=== PATIENT | female | born 1940 | race Caucasian/White ===

== ENCOUNTER → 2016-06-09 | Outpatient (CLI) | payer OTHER ==
--- NOTE | 2016-06-09 15:59 | MAMMOGRAPHY REPORT ---
BILATERAL DIGITAL SCREENING MAMMOGRAM WITH CAD: 06/09/2016 CLINICAL HISTORY: Routine screening. Patient has no complaints. TECHNIQUE: Bilateral CC and MLO views were obtained. Current study was also evaluated with a Comput er Aided Detection (CAD) system. COMPARISON: Comparison is made to exams dated: 06/06/2015 mammogram, 06/05/2014 mammogram, 06/02/2013 mammogram, 05/31/2012 mammogram, 05/28/2011 mammogram, and 05/27/2010 mammogram - [facility] enter. BREAST COMPOSITION: There are scattered areas of fibroglandular density in both breasts. FINDINGS: There are scattered stable benign coarse calcifications in the breasts. No suspicious mas s, architectural distortion or cluster of suspicious microcalcifications is seen. IMPRESSION: ACR BI-RADS CATEGORY 1: NEGATIVE There is no mammographic evidence of malignancy. A 1 year screening mammogram is recommended. The p atient will receive written notification of the results. Approximately 10% of breast cancers are not detected with mammography. A negative mammographic repor t should not delay biopsy if a clinically suggestive mass is present. Lyn Dickens M.D. ay/:06/09/2016 14:40:10 Triple Air Valve Tester: Tiarra FORD(Stefany)(Kwan), [facility] letter sent: Normal 1/2 BI-RADS Code: ACR BI-RADS Category 1: Negative
== END | disposition home or self-care (01) ==
LOC: C.MAMM 11:33
PROVIDERS: ATTEND Obstetrics & Gynecology
DX: Z12.31 Encounter for screening mammogram for malignant neoplasm of breast (principal)

== ENCOUNTER → 2016-08-27 | Outpatient (CLI) | payer OTHER ==
[2016-08-27 12:04] LABS: BASO % 0.3 %; BASO ABS # 0.02 K/uL (0-0.2); COMPLETE YES; EOS % 4.4 %; HEMATOCRIT 41.7 % (37-47); IG% 0.1 %; LYMPH % 22.8 %; LYMPH ABS # 1.82 K/uL (1.2-3.4); MEAN CELL VOLUME 96.1 fL (80-100); MEAN CORPUSCULAR HEMOGLOBIN 31.6 pg (25-34); MEAN CORPUSCULAR HGB CONC 32.9 g/dl (32-36); MEAN PLATELET VOLUME 10.6 fL (7.4-10.4); MONO % 7.6 %; NEUT % 64.8 %; PLATELET COUNT 257 K/uL (130-400); RED BLOOD COUNT 4.34 M/uL (4.2-5.4)
[2016-08-27 12:32] LABS: CHOLESTEROL/HDL RATIO 2.7; THYROID STIMULATING HORMONE 0.77 uIu/ml (0.300-4.500)
[2016-08-27 12:35] LABS: ESTIMATED AVERAGE GLUCOSE 108 mg/dl; HA1C FLAG Normal (Normal)
--- NOTE | 2016-08-31 13:09 | CODING QUERY MEDICAL NECESSITY ---
CQSUPPORTING DIAGNOSIS NEEDED A supporting diagnosis is required for the test/procedure performed on this patient in order for us to be reimbursed by the patient's insurance. Please provide a supporting diagnosis for the following test/procedure listed below next to the test name along with your signature. *If there is no additional diagnosis for this patient that would support the following test/procedure please document that below next to the test/procedure. Test(s)/Procedure(s) that require a supporting diagnosis: DOS 08/27/16 GLYCATED HEMOGLOBIN BLOOD GLUCOSE Provider Signature: Date: Thank you Dianne Nice Health Information Management Once completed, please kindly fax back to [phone] For questions please call [phone]
== END | disposition home or self-care (01) ==
LOC: C.LAB1850 10:36
PROVIDERS: ATTEND Obstetrics & Gynecology
DX: I10 Essential (primary) hypertension (principal)

== ENCOUNTER → 2016-11-09 | Outpatient (CLI) | payer OTHER ==
[~2016-11-09] MED LIST: GADAVIST IV PRN
--- NOTE | 2016-11-09 15:35 | DIAGNOSTIC IMAGING REPORT ---
BRAIN COMBO HISTORY: 76 years-old Female patient presents with acute tremors. Concern for possible stroke. COMPARISON: None available TECHNIQUE: Multiplanar multisequence MRI of the brain was obtained both with and without the use of IV contrast. 6.5 mL Gadavist was administered. FINDINGS: Several sequences are motion degraded, notably the axial diffusion. Within the limitations of the study, there is no focal area of restricted diffusion identified. The corpus callosum, brainstem, optic chiasm, pituitary gland, infundibulum and pineal gland appear unremarkable on the sagittal T1 sequence. There is no cerebellar tonsillar herniation identified. Uncovertebral spurring and intervertebral disc space narrowing is noted within the imaged cervical spine, notably at the C3-C4 level causing effacement of the ventral thecal sac. There is moderate cerebral and cerebellar atrophy without acute intracranial hemorrhage, midline shift, hydrocephalus, intracranial mass or abnormal extra-axial collections. There is mild ex vacuo ventriculomegaly. Patchy areas of T2/flair prolongation are seen within the subcortical, deep and periventricular white matter of this redemonstrated bilaterally suggesting chronic myovascular ischemic changes. No abnormal intra-axial or extra-axial enhancement is seen. The flow voids at the skull base appear normal. Moderate right and small left mastoid effusions are noted. There is mild maxillary and ethmoid sinus disease. Orbits are symmetric. IMPRESSION: 1. No acute intracranial abnormality identified. No evidence of acute ischemia or hemorrhage. 2. Moderate brain atrophy with associated chronic microvascular ischemic changes. 3. Mild maxillary and ethmoid sinus disease. 4. Moderate right and small left mastoid effusions. The above report was generated using voice recognition software. It may contain grammatical, syntax or spelling errors. Electronically signed by: Kamari Vazquez M.D. 11/09/2016 3:33 PM Dictated Date/Time: 11/09/2016 3:26 PM
== END | disposition home or self-care (01) ==
LOC: C.OPENMRI 13:30
PROVIDERS: ATTEND Psychiatry & Neurology Neurology
DX: R25.1 Tremor, unspecified (principal); G31.9 Degenerative disease of nervous system, unspecified; J32.2 Chronic ethmoidal sinusitis; J32.0 Chronic maxillary sinusitis

== ENCOUNTER → 2017-07-02 | Outpatient (CLI) | payer OTHER ==
--- NOTE | 2017-07-05 13:59 | MAMMOGRAPHY REPORT ---
BILATERAL DIGITAL SCREENING MAMMOGRAM TOMOSYNTHESIS WITH CAD: 07/02/2017 CLINICAL HISTORY: Routine screening. TECHNIQUE: Breast tomosynthesis in addition to standard 2D mammography was performed. Current study was also evaluated with a Computer Aided Detection (CAD) system. Bilateral CC and MLO 2D and tomosyn thesis images were obtained. Note that the left MLO views are somewhat suboptimal as the patient cou ld not tolerate proper positioning; the pectoralis muscle is not visualized on the MLO views. COMPARISON: Comparison is made to exams dated: 06/09/2016 mammogram, 06/06/2015 mammogram, 06/05/2014 m ammogram, 06/02/2013 mammogram, 05/31/2012 mammogram, and 05/28/2011 mammogram - [facility] nter. BREAST COMPOSITION: There are scattered areas of fibroglandular density in both breasts. FINDINGS: No suspicious masses, calcifications, or areas of architectural distortion are noted in ei ther breast. There has been no significant interval change compared to prior exams. Scattered bilater al benign-appearing calcifications are not significantly changed. A linear scar marker denotes a sca r on the left lateral breast. Asymmetry in the right subareolar breast is stable compared to multipl e prior exams. IMPRESSION: ACR BI-RADS CATEGORY 2: BENIGN There is no mammographic evidence of malignancy. A 1 year screening mammogram is recommended. The pa tient will receive written notification of the results. Approximately 10% of breast cancers are not detected with mammography. A negative mammographic report should not delay biopsy if a clinically suggestive mass is present. Rubina Francisco M.D. /:07/02/2017 15:42:19 Pin Or Clip Fastener: Lotus FORD(R)(M), [facility] letter sent: Normal 1/2 BI-RADS Code: ACR BI-RADS Category 2: Benign
== END | disposition home or self-care (01) ==
LOC: C.MAMM 14:37
PROVIDERS: ATTEND Obstetrics & Gynecology
DX: Z12.31 Encounter for screening mammogram for malignant neoplasm of breast (principal)

== ENCOUNTER → 2017-07-20 | Outpatient (CLI) | payer OTHER ==
[2017-07-20 13:25] LABS: BASO % 0.6 %; BASO ABS # 0.04 K/uL (0-0.2); EOS ABS # 0.21 K/uL (0-0.5); HEMATOCRIT 40.2 % (37-47); HEMOGLOBIN 13.4 g/dL (12.0-16.0); IG# 0.02 K/uL (0.00-0.02); LYMPH % 25.9 %; LYMPH ABS # 1.81 K/uL (1.2-3.4); MEAN CELL VOLUME 95.3 fL (80-100); MEAN CORPUSCULAR HEMOGLOBIN 31.8 pg (25-34); MEAN CORPUSCULAR HGB CONC 33.3 g/dl (32-36); MEAN PLATELET VOLUME 10.6 fL (7.4-10.4); MONO % 6.1 %; MONO ABS # 0.43 K/uL (0.11-0.59); NEUT % 64.1 %; NEUT ABS # 4.49 K/uL (1.4-6.5); PLATELET COUNT 276 K/uL (130-400); RED CELL DISTRIBUTION WIDTH SD 45.2 fL (36.4-46.3)
[2017-07-21 06:01] LABS: HEMOGLOBIN A1C 5.1 % (4.5-5.6)
== END | disposition home or self-care (01) ==
LOC: C.LAB1850 11:31
PROVIDERS: ATTEND Obstetrics & Gynecology
DX: I10 Essential (primary) hypertension (principal)

== ENCOUNTER 2023-09-25 00:55 | Inpatient (IN) ==
[2023-09-25 01:43] LABS: Basophils # (auto) 0.03 K/uL (0.00-0.20); Basophils % (auto) 0.2 %; Hematocrit (blood only) 35.1 % (37.0-47.0); Immature Granulocytes % (auto) 0.7 %; Lymphocytes # (auto) 0.86 K/uL (1.20-3.40); Lymphocytes % (auto) 6.3 %; Mean Corpuscular Hgb Conc 34.2 g/dL (32.0-36.0); Mean Corpuscular Volume 90.7 fL (80.0-100.0); Monocytes # (auto) 1.23 K/uL (0.11-0.59); Neutrophils # (auto) 11.41 K/uL (1.40-6.50); Neutrophils % (auto) 83.8 %; Platelet Count 213 K/uL (130-400); RDW Standard Deviation 42.5 fL (36.4-46.3); Red Blood Count 3.87 M/uL (4.20-5.40); White Blood Count 13.63 K/ul (4.8-10.8)
[2023-09-25 02:01] LABS: Alanine Aminotransferase 8 U/L (7-52); Albumin Globulin Ratio 1.4 (0.9-2); Albumin Level 3.4 gm/dl (3.4-5.0); Alkaline Phosphatase 51 U/L (34-104); Anion Gap 7 (3-11); Aspartate Aminotransferase 41 U/L (13-39); BUN Creatinine Ratio 24.1 (10-20); Bilirubin,Total 0.7 mg/dl (0.2-1.0); Blood Urea Nitrogen 20 mg/dl (6-23); Calcium 8.3 mg/dl (8.6-10.3); Carbon Dioxide 27 mmol/L (21-32); Chloride 105 mmol/L (98-107); Creatine Kinase 831 U/L (26-192); Est GFR (African American) 75.1 ml/min; Est GFR (Non-African American) 64.8 ml/min; Globulin 2.4 gm/dl (2.5-4.0); Glucose 134 mg/dl (70-99(Fasting)); Potassium 3.3 mmol/L (3.5-5.1); Sodium 139 mmol/L (136-145); Total Protein 5.8 gm/dl (6.0-8.3)
[2023-09-25 02:08] LABS: Troponin I High Sensitivity 20.8 pg/ml (0-14)
--- NOTE | 2023-09-25 03:32 | CT Scan Report ---
Exam(s): CT ABDOMEN + PELVIS Without Contrast EXAM: CT Abdomen and Pelvis Without Intravenous Contrast CLINICAL HISTORY: Fall. TECHNIQUE: Axial computed tomography images of the abdomen and pelvis without intravenous contrast. CTDI is 8.59 mGy and DLP is 389.23 mGy-cm. Automated exposure control was utilized for the study. A dose lowering technique was utilized adhering to the principles of ALARA. COMPARISON: No relevant prior studies available. FINDINGS: Lung bases: Unremarkable. No mass. No consolidation. ABDOMEN: Liver: There is a simple hepatic cyst, no follow-up is needed. Gallbladder and bile ducts: Unremarkable. No calcified stones. No ductal dilation. Pancreas: Unremarkable. No ductal dilation. Spleen: Unremarkable. No splenomegaly. Adrenals: Unremarkable. No mass. Kidneys and ureters: Severe right hydronephrosis. Left kidney is unremarkable. Stomach and bowel: Diverticulosis. No obstruction. No mucosal thickening. There is significant fluid of the colon. PELVIS: Appendix: No findings to suggest acute appendicitis. Bladder: Distended bladder is concerning relative obstruction. No stones. Reproductive: Unremarkable as visualized. ABDOMEN and PELVIS: Intraperitoneal space: Unremarkable. No free air. No significant fluid collection. Bones/joints: There are degenerative changes of the spine. No acute fracture. The osseous structures are demineralized. No dislocation. Soft tissues: Nonspecific body wall edema. Vasculature: Mild atherosclerosis. No abdominal aortic aneurysm. Lymph nodes: Unremarkable. No enlarged lymph nodes. IMPRESSION: 1. Severe right hydronephrosis. Distended bladder is concerning relative obstruction. 2. Nonspecific body wall edema. 3. Significant stool throughout the colon is concerning for constipation. 4. Diverticulosis. Electronically signed by: Katina Russell MD 09/25/23 03:30 AM
--- NOTE | 2023-09-25 03:32 | CT Scan Report ---
Exam(s): CT HEAD Without Contrast EXAM: CT Head Without Intravenous Contrast CLINICAL HISTORY: Fall. TECHNIQUE: Axial computed tomography images of the head/brain without intravenous contrast. CTDI is 34.77 mGy and DLP is 624.41 mGy-cm. Automated exposure control was utilized for the study. A dose lowering technique was utilized adhering to the principles of ALARA. COMPARISON: CT head 07/23/2023 FINDINGS: Brain: No intracranial hemorrhage, mass-effect or midline shift. No abnormal extra axial fluid. No evidence of acute infarct. Mild periventricular white matter hypodensities are most consistent with chronic microangiopathy. Ventricles: Unremarkable. No ventriculomegaly. Bones/joints: Unremarkable. No acute fracture. Soft tissues: Unremarkable. Sinuses: Unremarkable as visualized. No acute sinusitis. Mastoid air cells: Large mastoid effusions. IMPRESSION: No acute intracranial finding. Electronically signed by: Katina Russell MD 09/25/23 03:31 AM
--- NOTE | 2023-09-25 03:35 | Emergency Department Note ---
History of Present Illness General Chief complaint: Fall Stated complaint: FALL, BILATERAL ELBOW ABRASIONS Time Seen by Provider: 09/25/23 01:06 History of Present Illness This is an 83-year-old female presenting to the emergency department for evaluation of fall sometime this evening. Patient [facility] [place] [facility], and had an unwitnessed fall. She did push her alert button. Patient does not recall any of the events before or immediately after the fall. She is unsure what her downtime was. She does have injuries to her elbows. The patient has had several falls the past 2 months. She is complaining of pain in her back and hips, but was able to stand for EMS. She does have history of Parkinson's and is not on blood thinners. Home Medications Medication Instructions Recorded Confirmed Type calcium carbonate 600 mg-vitamin 1 cap PO 3XWK 10/18/18 09/25/23 History D3 5 mcg (200 unit) capsule (Calcium 600 + D(3)) carbidopa 25 mg-levodopa 100 mg 2.5 tab PO BID 10/18/18 09/25/23 History tablet (Sinemet) metoprolol succinate 25 mg capsule 12.5 mg PO QAM 11/07/18 09/25/23 History sprinkle, ext. release 24 hr carbidopa 25 mg tablet 25 mg PO QAM 10/15/22 09/25/23 History carbidopa ER 50 mg-levodopa 200 mg 2 tab PO QPM 10/15/22 09/25/23 History tablet,extended release docusate sodium 100 mg capsule 100 mg PO Q OTHER DAY Constipation 10/15/22 09/25/23 History (Colace) lisinopril 5 mg tablet 5 mg PO QAM 10/15/22 09/25/23 History lorazepam 0.5 mg tablet (Ativan) 0.5 mg PO DAILY PRN Anxiety 10/15/22 09/25/23 History sertraline 50 mg tablet (Zoloft) 50 mg PO QAM 10/15/22 09/25/23 History donepezil 10 mg tablet 10 mg PO DAILY 09/25/23 09/25/23 History melatonin 3 mg tablet 3 mg PO HS PRN Sleep 09/25/23 09/25/23 History mirabegron 25 mg tablet,extended 25 mg PO Q OTHER DAY 09/25/23 09/25/23 History release 24 hr multivitamin with minerals-folic 1 tab PO DAILY 09/25/23 09/25/23 History acid 200 mcg chewable tablet (Womens Daily Gummies) Allergies Allergy/AdvReac Type Severity Reaction Status Date / Time No Known Drug Allergies Allergy Unknown Verified 09/25/23 02:50 Past Med/Surg History Problem List (Updated 09/26/23 @ 01:06 by Kamaljit Linares PA-C) Back pain (Acute) Injury of elbow (Acute) Elevated troponin (Acute) Elevated CK (Acute) Fall (Acute) Elevated troponin Elevated creatine kinase Fall Acute bilateral knee pain (Acute) Cholesteatoma Pancreatic mass Dislocation, elbow closed Elbow fracture, right Encounter for pre-operative examination Greater trochanteric bursitis of left hip Golfers elbow of left upper extremity Neck pain Degenerative disc disease, cervical Medial epicondylitis Degenerative arthritis Degenerative joint disease of cervical spine Epicondylitis, lateral, left Medial epicondylitis, right elbow Balance disorder Cervical stenosis of spine Pain of right deltoid 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 hands Osteopenia GERD (gastroesophageal reflux disease) Surgical History History of cataract surgery S/P breast biopsy, right (11/08/18) Needle localization, right breast biopsy with removal of right breast clip using radiofrequency marker Dr. Boudreaux 11/08/18 History of colonoscopy History of open reduction and internal fixation (ORIF) procedure LEFT ELBOW Family History Mother Family history of diabetes mellitus Heart disease Hypertension Father Heart disease Hypertension Brother Heart disease Other No family history of adverse response to anesthesia No family history of bleeding disorder Social History Smoking Status: Never smoker Second Hand Exposure: No; Do You Dip or Chew Tobacco: No; Hx Alcohol Use: No Hx Substance Use: No Preferred Language: Ethiopian Communication Ability: Effective Communication Ability Comment: [place], uses B/L hearing aids Senior Sales Executive Required: No Beliefs That Will Affect Care: None marital status: / Current Living Situation: Prison Current Living Situation Comment: [place] current occupational status: retired current occupation: Retired teacher Feels Safe at Home: Yes Dental Care, Regularly: Yes Assistive Devices: Glasses, Hearing Aid - Bilateral and Walker Review of Systems A total of 10 systems reviewed and were otherwise negative Physical Exam Vital Signs Vital Signs - 24 hr 09/25/23 01:00 09/25/23 01:16 09/25/23 01:16 Pulse Rate 67 68 Pulse Rate [Right Finger] 70 Respiratory Rate 15 14 Blood Pressure [Right Arm] 173/84 H Blood Pressure Mean [Right Arm] 113 Pulse Oximetry 96 97 Oxygen Delivery Method Room Air Room Air 09/25/23 02:00 09/25/23 02:01 Pulse Rate Pulse Rate [Right Finger] 67 71 Respiratory Rate 14 17 Blood Pressure [Right Arm] 139/72 139/72 Blood Pressure Mean [Right Arm] 94 94 Pulse Oximetry 96 99 Oxygen Delivery Method Room Air Room Air VITALS: Vitals are noted on the nurse's note and reviewed by myself. Vital signs stable. GENERAL: Pleasant elderly white female in no acute distress. HEAD: Normocephalic atraumatic. NECK: Supple without nuchal rigidity. No lymphadenopathy. No thyromegaly. Cervical spine is nontender. HEART: Regular rate and rhythm LUNGS: Clear to auscultation bilaterally without wheezes, rales or rhonchi. No retractions or accessory muscle use. ABDOMEN: Positive normal bowel sounds x 4. Soft, nontender, without masses or organomegaly. No guarding or rebound tenderness. MUSCULOSKELETAL: Multiple superficial skin tear injuries to the bilateral elbows. No shortening or rotation of hips. No tenderness with pelvic rock BACK: Mild reproducible tenderness throughout lower lumbar spine. NEURO: Patient was alert and oriented to person place and time. Course Administered Medications Carbidopa/Levodopa (Carbidopa/Levodopa 25/100mg Tab) 2.5 tab PO 0900,1400 DANILO Stop: 10/25/23 08:59 Last Admin: 09/25/23 15:22 Dose: 2.5 tab Documented By: Admin: 09/25/23 08:47 Dose: 2.5 tab Documented By: ALTA Carbidopa/Levodopa (Carbidopa/Levodopa 50/200mg Ext Rel Tab) 2 tab PO QPM [facility] Stop: 10/25/23 20:59 Last Admin: 09/25/23 20:40 Dose: 2 tab Documented By: CARO Docusate Sodium (Docusate Sodium 100 Mg Cap) 100 mg PO Q48H [facility] Stop: 10/25/23 08:59 Last Admin: 09/25/23 08:44 Dose: 100 mg Documented By: ALTA Donepezil HCl (Donepezil Hcl 10 Mg Tab) 10 mg PO DAILY [facility] Stop: 10/25/23 08:59 Last Admin: 09/25/23 08:45 Dose: 10 mg Documented By: ALTA Enoxaparin Sodium (Enoxaparin Inj 30 Mg/0.3 Ml Syr) 30 mg SQ Q24H [facility] Stop: 10/25/23 08:59 Last Admin: 09/25/23 08:48 Dose: 30 mg Documented By: ALTA Lisinopril (Lisinopril 5 Mg Tab) 5 mg PO QAM [facility] Stop: 10/25/23 08:59 Last Admin: 09/25/23 08:45 Dose: 5 mg Documented By: ALTA Metoprolol Succinate (Metoprolol Succ 25mg Ext Rel Tab) 12.5 mg PO QAM [facility] Stop: 10/25/23 08:59 Last Admin: 09/25/23 08:46 Dose: 12.5 mg Documented By: ALTA Miscellaneous (Carbidopa 25 Mg Tablet: Order Awaiting Action) 1 each N/A QS [facility] Stop: 10/25/23 07:59 Last Admin: 09/25/23 22:24 Dose: Not Given Documented By: Admin: 09/25/23 15:28 Dose: Not Given Documented By: BRHemant Admin: 09/25/23 08:47 Dose: Not Given Documented By: ALTA Sertraline HCl (Sertraline Hcl 50 Mg Tablet) 50 mg PO QAM [facility] Stop: 10/25/23 08:59 Last Admin: 09/25/23 08:47 Dose: 50 mg Documented By: ALTA Discontinued Medications Lactated Ringer's (Lr) 1,000 mls @ 75 mls/hr IV .[id number] [facility] Stop: 09/25/23 17:40 Last Infusion: 09/25/23 18:48 Dose: Infused Documented By: Admin: 09/25/23 05:19 Dose: 75 mls/hr Documented By: BREE Ioversol (Optiray 320 100ml) 94 ml IV ONCE ONE Stop: 09/25/23 16:57 Last Admin: 09/25/23 16:57 Dose: 94 ml Documented By: ART Potassium Chloride (Potassium Chloride Crtab 20 Meq Tabcr) 40 meq PO NOW STA Stop: 09/25/23 06:54 Last Admin: 09/25/23 08:43 Dose: 40 meq Documented By: ALTA Medical Decision Making Differential Diagnosis Differential diagnosis: Etiologies such as tendon or ligamentous injury, contusion, fracture, cervical/vertebral injury, dislocation, intra-abdominal process, pneumothorax, intrathoracic trauma, intracranial injury, soft tissue injury, neurologic process, as well as other traumatic pathologies were entertained. Laboratory Data 09/25/23 01:27 09/25/23 01:27 Lab Results 09/25/23 Range/Units 01:27 WBC 13.63 H (4.8-10.8) K/ul RBC 3.87 L (4.20-5.40) M/uL Hgb 12.0 (12.0-16.0) g/dl Hct 35.1 L (37.0-47.0) % MCV 90.7 (80.0-100.0) fL MCH 31.0 (25.0-34.0) pg MCHC 34.2 (32.0-36.0) g/dL RDW Std Deviation 42.5 (36.4-46.3) fL RDW Coeff of Shayne 13.0 (11.5-14.5) % Plt Count 213 (130-400) K/uL MPV 10.0 (9.4-12.4) fL Immature Gran % (Auto) 0.7 % Neut % (Auto) 83.8 % Lymph % (Auto) 6.3 % [place]ster % (Auto) 9.0 % Eos % (Auto) 0.0 % Baso % (Auto) 0.2 % Neut # (Auto) 11.41 H (1.40-6.50) K/uL Lymph # (Auto) 0.86 L (1.20-3.40) K/uL Ulster # (Auto) 1.23 H (0.11-0.59) K/uL Eos # (Auto) 0.00 (0.00-0.50) K/uL Baso # (Auto) 0.03 (0.00-0.20) K/uL Immature Gran # (Auto) 0.10 (0.01-0.20) K/uL Sodium 139 (136-145) mmol/L Potassium 3.3 L (3.5-5.1) mmol/L Chloride 105 (98-107) mmol/L Carbon Dioxide 27 (21-32) mmol/L Anion Gap 7 (3-11) BUN 20 (6-23) mg/dl Creatinine 0.83 (0.6-1.2) mg/dl Est Cr Clr Drug Dosing Not Reportable Est GFR ( Amer) 75.1 ml/min Est GFR (Non-Af Amer) 64.8 ml/min BUN/Creatinine Ratio 24.1 H (10-20) Glucose 134 H (70-99(Fasting)) mg/dl Calcium 8.3 L (8.6-10.3) mg/dl Total Bilirubin 0.7 (0.2-1.0) mg/dl AST 41 H (13-39) U/L ALT 8 (7-52) U/L Alkaline Phosphatase 51 (34-104) U/L Total Creatine Kinase 831 H (26-192) U/L Troponin I High Sens 20.8 H (0-14) pg/ml Total Protein 5.8 L (6.0-8.3) gm/dl Albumin 3.4 (3.4-5.0) gm/dl Globulin 2.4 L (2.5-4.0) gm/dl Albumin/Globulin Ratio 1.4 (0.9-2) Imaging Data Radiologist's Impression: Abdomen/Pelvis CT 09/25/23 01:16 Exam(s): CT ABDOMEN + PELVIS Without Contrast EXAM: CT Abdomen and Pelvis Without Intravenous Contrast CLINICAL HISTORY: Fall. TECHNIQUE: Axial computed tomography images of the abdomen and pelvis without intravenous contrast. CTDI is 8.59 mGy and DLP is 389.23 mGy-cm. Automated exposure control was utilized for the study. A dose lowering technique was utilized adhering to the principles of ALARA. COMPARISON: No relevant prior studies available. FINDINGS: Lung bases: Unremarkable. No mass. No consolidation. ABDOMEN: Liver: There is a simple hepatic cyst, no follow-up is needed. Gallbladder and bile ducts: Unremarkable. No calcified stones. No ductal dilation. Pancreas: Unremarkable. No ductal dilation. Spleen: Unremarkable. No splenomegaly. Adrenals: Unremarkable. No mass. Kidneys and ureters: Severe right hydronephrosis. Left kidney is unremarkable. Stomach and bowel: Diverticulosis. No obstruction. No mucosal thickening. There is significant fluid of the colon. PELVIS: Appendix: No findings to suggest acute appendicitis. Bladder: Distended bladder is concerning relative obstruction. No stones. Reproductive: Unremarkable as visualized. ABDOMEN and PELVIS: Intraperitoneal space: Unremarkable. No free air. No significant fluid collection. Bones/joints: There are degenerative changes of the spine. No acute fracture. The osseous structures are demineralized. No dislocation. Soft tissues: Nonspecific body wall edema. Vasculature: Mild atherosclerosis. No abdominal aortic aneurysm. Lymph nodes: Unremarkable. No enlarged lymph nodes. IMPRESSION: 1. Severe right hydronephrosis. Distended bladder is concerning relative obstruction. 2. Nonspecific body wall edema. 3. Significant stool throughout the colon is concerning for constipation. 4. Diverticulosis. Electronically signed by: Katina Russell MD 09/25/23 03:[address] 09/25/23 01:16 Exam(s): CT HEAD Without Contrast EXAM: CT Head Without Intravenous Contrast CLINICAL HISTORY: Fall. TECHNIQUE: Axial computed tomography images of the head/brain without intravenous contrast. CTDI is 34.77 mGy and DLP is 624.41 mGy-cm. Automated exposure control was utilized for the study. A dose lowering technique was utilized adhering to the principles of ALARA. COMPARISON: CT head 07/23/2023 FINDINGS: Brain: No intracranial hemorrhage, mass-effect or midline shift. No abnormal extra axial fluid. No evidence of acute infarct. Mild periventricular white matter hypodensities are most consistent with chronic microangiopathy. Ventricles: Unremarkable. No ventriculomegaly. Bones/joints: Unremarkable. No acute fracture. Soft tissues: Unremarkable. Sinuses: Unremarkable as visualized. No acute sinusitis. Mastoid air cells: Large mastoid effusions. IMPRESSION: No acute intracranial finding. Electronically signed by: Katina Russell MD 09/25/23 03:31 AM ECG Data Attestation: I personally reviewed and interpreted this ECG as follows: Indication: + other (Fall) Additional Comments: Normal sinus rhythm @[address] elevation Low voltage QRS Borderline ECG No previous ECGs available MDM Narrative Physical exam and history were performed. Nursing notes, EMR, and Medication List were personally reviewed. No social concerns were identified as barriers to patients care. Patient appears to have had an unwitnessed fall this evening. She does have outward signs of injury to her elbows. IV access was established and labs were obtained. Patient was sent to CT scan for imaging of her head, as well as her abdomen and pelvis that she has back and hip pain. X-rays of the elbows were performed. Case was discussed with my attending who also independently evaluated the patient. Patient's blood work is as above and was reviewed. She does have a slightly elevated white count of 13,000. She does not have significant anemia or gross electrolyte imbalance. Troponin is elevated at 20, however her EKG does not seem truly ischemic. CK is elevated at over 800, which may represent an element of rhabdomyolysis and prolonged downtime. CT scans and x-rays were performed and independently reviewed by myself and radiology showing no acute process. Overall the patient does not appear well for discharge. Escalation of care is necessary. Case was discussed with the on-call hospitalist team, who agreed to evaluate the patient here in the ER. Please see their dictation for further patient course, plan, disposition. The chart was completed utilizing [employer] Speech Voice Recognition Software. Grammatical errors, random word insertions, pronoun errors, and incomplete sentences are an occasional consequence of this system due to software limitations, ambient noise, and hardware issues. Any formal questions or concerns about the content, text, or information contained within the body of this dictation should be directly addressed to the provider for clarification. . Impression & Plan Fall, Elevated CK, Elevated troponin, Injury of elbow, Back pain Discharge Plan Visit Data Chief Complaint: Fall Stated Complaint: FALL, BILATERAL ELBOW ABRASIONS ED Provider: Edilia Lazaro ED Midlevel Provider: Kamaljit Linares Discharge Problem: Fall, Elevated CK, Elevated troponin, Injury of elbow, Back pain Patient Disposition: Admitted As Inpatient Discharge Instructions Interventions: ED Discharge Assessment Last Done: 09/25/23 21:37
--- NOTE | 2023-09-25 03:59 | History & Physical Report ---
Date of Service September 25, 2023 Assessment & Plan (1) Fall: Plan: Patient with frequent falls. Frail, history of Parkinson's Disease. She does not recollect the fall. No complaints of pain -Fall precautions -PT/OT evaluation (2) Elevated creatine kinase: Plan: OU=355. Unknown down time following fall -Gentle IVF - LR at 75mL/hr -Repeat CK in AM (3) Elevated troponin: Plan: Patient denies chest pain, no acute ischemic changes on EKG -Telemetry monitoring -Trend troponin Plan Parkinson's: chronic -Continue home Carbidopa/Levodopa Dementia: frequent orientation -Continue Aricept Hypertension: chronic. stable -Continue Lisinopril Anxiety: chronic. stable -Continue Sertraline -Lorazepam PRN History of Present Illness Chief Complaint: unwitnessed fall Primary Care Provider: Charly Lemus DO Padmini Brothers is an 83yo female presenting from [place] after an unwitnessed fall. Patient with history of dementia, unable to provide details of events prior to arrival. Patient apparently hit her life alert button due to weakness. She had an unwitnessed fall and was brought to the ER. Mild elevation of CK and Troponin Patient offers no complaints during exam Allergies Allergy/AdvReac Type Severity Reaction Status Date / Time No Known Drug Allergies Allergy Unknown Verified 09/25/23 02:50 Home Medications Medication Instructions Recorded Confirmed Type calcium carbonate 600 mg-vitamin 1 cap PO 3XWK 10/18/18 09/25/23 History D3 5 mcg (200 unit) capsule (Calcium 600 + D(3)) carbidopa 25 mg-levodopa 100 mg 2.5 tab PO BID 10/18/18 09/25/23 History tablet (Sinemet) metoprolol succinate 25 mg capsule 12.5 mg PO QAM 11/07/18 09/25/23 History sprinkle, ext. release 24 hr carbidopa 25 mg tablet 25 mg PO QAM 10/15/22 09/25/23 History carbidopa ER 50 mg-levodopa 200 mg 2 tab PO QPM 10/15/22 09/25/23 History tablet,extended release docusate sodium 100 mg capsule 100 mg PO Q OTHER DAY Constipation 10/15/22 09/25/23 History (Colace) lisinopril 5 mg tablet 5 mg PO QAM 10/15/22 09/25/23 History lorazepam 0.5 mg tablet (Ativan) 0.5 mg PO DAILY PRN Anxiety 10/15/22 09/25/23 History sertraline 50 mg tablet (Zoloft) 50 mg PO QAM 10/15/22 09/25/23 History donepezil 10 mg tablet 10 mg PO DAILY 09/25/23 09/25/23 History melatonin 3 mg tablet 3 mg PO HS PRN Sleep 09/25/23 09/25/23 History mirabegron 25 mg tablet,extended 25 mg PO Q OTHER DAY 09/25/23 09/25/23 History release 24 hr multivitamin with minerals-folic 1 tab PO DAILY 09/25/23 09/25/23 History acid 200 mcg chewable tablet (Womens Daily Gummies) Past Med/Surg History Problem List (Updated 09/25/23 @ 04:24 by Anamika Brooks DO) Elevated troponin Elevated creatine kinase Fall Acute bilateral knee pain (Acute) Cholesteatoma Pancreatic mass Dislocation, elbow closed Elbow fracture, right Encounter for pre-operative examination Greater trochanteric bursitis of left hip Golfers elbow of left upper extremity Neck pain Degenerative disc disease, cervical Medial epicondylitis Degenerative arthritis Degenerative joint disease of cervical spine Epicondylitis, lateral, left Medial epicondylitis, right elbow Balance disorder Cervical stenosis of spine Pain of right deltoid 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 hands Osteopenia GERD (gastroesophageal reflux disease) Surgical History History of cataract surgery S/P breast biopsy, right (11/08/18) Needle localization, right breast biopsy with removal of right breast clip using radiofrequency marker Dr. Boudreaux 11/08/18 History of colonoscopy History of open reduction and internal fixation (ORIF) procedure LEFT ELBOW Family History Mother Family history of diabetes mellitus Heart disease Hypertension Father Heart disease Hypertension Brother Heart disease Other No family history of adverse response to anesthesia No family history of bleeding disorder Social History Smoking Status: Never smoker Second Hand Exposure: No; Do You Dip or Chew Tobacco: No; Hx Alcohol Use: Yes Alcohol type: wine Hx Substance Use: No Preferred Language: Bahamian Communication Ability: Effective Wireless Cellular Technician Required: No Beliefs That Will Affect Care: None marital status: / Current Living Situation: Alone Current Living Situation Comment: [place] apartments>indep. living current occupational status: retired current occupation: Retired teacher Feels Safe at Home: Yes Dental Care, Regularly: Yes Assistive Devices: Glasses, Hearing Aid - Bilateral and Walker Review of Systems Review of Systems: All systems reviewed & are unremarkable except as noted in HPI & below Physical Exam Physical Exam: General: frail, elderly female patient resting comfortably, snoring loudly, arousable but somnolent Skin: scattered bruises and skin tears from prior falls HEENT: NC/AT, PERRL, EOMI, anicteric sclera, conjunctiva without injection, external ear normal to inspection and nontender, nares patent, moist mucus membranes, dentition intact, no oropharyngeal lesions, neck supple, trachea midline, no LAD, no thyromegaly, no JVD Heart: +S1/S2, regular, no m/r/g Lungs: equal air entry bilaterally, no rales/rhonchi/wheezes Abd: +BS, soft, NT/ND, no masses/organomegaly/ascites Ext: warm, 2+ pulses in UE/LE bilaterally, no clubbing/cyanosis or edema Neuro: grossly nonfocal Results & Data Results & Data Vital Signs (Past 12 Hours) Vital Signs Pulse Pulse Resp BP BP Pulse Ox O2 Del Method 09/25/23 02:01 71 17 139/72 99 Room Air 09/25/23 01:16 68 14 97 Room Air 09/25/23 01:16 67 09/25/23 00:53 70 15 173/84 H 98 Room Air Laboratory Results Laboratory Results WBC 13.63 K/ul (4.8-10.8) H 09/25/23 01:27 RBC 3.87 M/uL (4.20-5.40) L 09/25/23 01:27 Hgb 12.0 g/dl (12.0-16.0) 09/25/23 01: Hct 35.1 % (37.0-47.0) L 09/25/23 01:27 MCV 90.7 fL (80.0-100.0) 09/25/23 01: MCH 31.0 pg (25.0-34.0) 09/25/23: MCHC 34.2 g/dL (32.0-36.0) 09/25/23: RDW Std Deviation 42.5 fL (36.4-46.3) 09/25/23 01: RDW Coeff of Shayne 13.0 % (11.5-14.5) 09/25/23: Plt Count 213 K/uL (130-400) 09/25/23 01: MPV 10.0 fL (9.4-12.4) 09/25/23 01:27 Immature Gran % (Auto) 0.7 % 09/25/23 01: Neut % (Auto) 83.8 % 09/25/23 01:27 Lymph % (Auto) 6.3 % 09/25/23 01:27 Payette % (Auto) 9.0 % 09/25/23 01:27 Eos % (Auto) 0.0 % 09/25/23 01: Baso % (Auto) 0.2 % 09/25/23 01:27 Neut # (Auto) 11.41 K/uL (1.40-6.50) H 09/25/23 01:27 Lymph # (Auto) 0.86 K/uL (1.20-3.40) L 09/25/23 01:27 Payette # (Auto) 1.23 K/uL (0.11-0.59) H 09/25/23 01:27 Eos # (Auto) 0.00 K/uL (0.00-0.50) 09/25/23 01:27 Baso # (Auto) 0.03 K/uL (0.00-0.20) 09/25/23 01:27 Immature Gran # (Auto) 0.10 K/uL (0.01-0.20) 09/25/23 01:27 Sodium 139 mmol/L (136-145) 09/25/23 01:27 Potassium 3.3 mmol/L (3.5-5.1) L 09/25/23 01:27 Chloride 105 mmol/L (98-107) 09/25/23 01:27 Carbon Dioxide 27 mmol/L (21-32) 09/25/23 01:27 Anion Gap 7 (3-11) 09/25/23 01:27 BUN 20 mg/dl (6-23) 09/25/23 01:27 Creatinine 0.83 mg/dl (0.6-1.2) 09/25/23 01:27 Est Cr Clr Drug Dosing Not Reportable 09/25/23 01:27 Est GFR ( Amer) 75.1 ml/min 09/25/23 01:27 Est GFR (Non-Af Amer) 64.8 ml/min 09/25/23 01:27 BUN/Creatinine Ratio 24.1 (10-20) H 09/25/23 01:27 Glucose 134 mg/dl (70-99(Fasting)) H 09/25/23 01:27 Calcium 8.3 mg/dl (8.6-10.3) L 09/25/23 01:27 Total Bilirubin 0.7 mg/dl (0.2-1.0) 09/25/23 01:27 AST 41 U/L (13-39) H 09/25/23 01:27 ALT 8 U/L (7-52) 09/25/23 01:27 Alkaline Phosphatase 51 U/L (34-104) 09/25/23 01:27 Total Creatine Kinase 831 U/L (26-192) H 09/25/23 01:27 Troponin I High Sens 20.8 pg/ml (0-14) H 09/25/23 01:27 Total Protein 5.8 gm/dl (6.0-8.3) L 09/25/23 01:27 Albumin 3.4 gm/dl (3.4-5.0) 09/25/23 01:27 Globulin 2.4 gm/dl (2.5-4.0) L 09/25/23 01:27 Albumin/Globulin Ratio 1.4 (0.9-2) 09/25/23 01:27 Impressions Abdomen/Pelvis CT 09/25/23 01:16 Exam(s): CT ABDOMEN + PELVIS Without Contrast EXAM: CT Abdomen and Pelvis Without Intravenous Contrast CLINICAL HISTORY: Fall. TECHNIQUE: Axial computed tomography images of the abdomen and pelvis without intravenous contrast. CTDI is 8.59 mGy and DLP is 389.23 mGy-cm. Automated exposure control was utilized for the study. A dose lowering technique was utilized adhering to the principles of ALARA. COMPARISON: No relevant prior studies available. FINDINGS: Lung bases: Unremarkable. No mass. No consolidation. ABDOMEN: Liver: There is a simple hepatic cyst, no follow-up is needed. Gallbladder and bile ducts: Unremarkable. No calcified stones. No ductal dilation. Pancreas: Unremarkable. No ductal dilation. Spleen: Unremarkable. No splenomegaly. Adrenals: Unremarkable. No mass. Kidneys and ureters: Severe right hydronephrosis. Left kidney is unremarkable. Stomach and bowel: Diverticulosis. No obstruction. No mucosal thickening. There is significant fluid of the colon. PELVIS: Appendix: No findings to suggest acute appendicitis. Bladder: Distended bladder is concerning relative obstruction. No stones. Reproductive: Unremarkable as visualized. ABDOMEN and PELVIS: Intraperitoneal space: Unremarkable. No free air. No significant fluid collection. Bones/joints: There are degenerative changes of the spine. No acute fracture. The osseous structures are demineralized. No dislocation. Soft tissues: Nonspecific body wall edema. Vasculature: Mild atherosclerosis. No abdominal aortic aneurysm. Lymph nodes: Unremarkable. No enlarged lymph nodes. IMPRESSION: 1. Severe right hydronephrosis. Distended bladder is concerning relative obstruction. 2. Nonspecific body wall edema. 3. Significant stool throughout the colon is concerning for constipation. 4. Diverticulosis. Electronically signed by: Katina Russell MD 09/25/23 03:[address] 09/25/23 01:16 Exam(s): CT HEAD Without Contrast EXAM: CT Head Without Intravenous Contrast CLINICAL HISTORY: Fall. TECHNIQUE: Axial computed tomography images of the head/brain without intravenous contrast. CTDI is 34.77 mGy and DLP is 624.41 mGy-cm. Automated exposure control was utilized for the study. A dose lowering technique was utilized adhering to the principles of ALARA. COMPARISON: CT head 07/23/2023 FINDINGS: Brain: No intracranial hemorrhage, mass-effect or midline shift. No abnormal extra axial fluid. No evidence of acute infarct. Mild periventricular white matter hypodensities are most consistent with chronic microangiopathy. Ventricles: Unremarkable. No ventriculomegaly. Bones/joints: Unremarkable. No acute fracture. Soft tissues: Unremarkable. Sinuses: Unremarkable as visualized. No acute sinusitis. Mastoid air cells: Large mastoid effusions. IMPRESSION: No acute intracranial finding. Electronically signed by: Katina Russell MD 09/25/23 03:31 AM ECG Additional Comments: EKG with NSR at 70bpm, normal axis and intervals, no acute ischemic changes Code Status & VTE Plan VTE Prophylaxis Plan VTE Prophylaxis will be ordered: Yes PG Care Time/CCT Total # of Minutes Spent Total Time Spent with Patient: Total time spent is greater than 50% in coordination of care (as documented) at patient's floor/unit and/or counseling patient: Coding Level of Care Code 83353 INT INP/OBS CARE 2MIN Diagnoses Fall W19.XXXA Elevated creatine kinase R74.8 Elevated troponin R79.89
[2023-09-25] MEDS ORDERED: ONDANSETRON INJ 2 MG/ML 2 ML VIAL IV PRN (04:21)
[2023-09-25] MEDS ORDERED: LORazepam 0.5 MG TAB PO PRN (04:21)
[2023-09-25] MEDS ORDERED: ACETAMINOPHEN 325 MG TAB PO PRN (04:21)
[2023-09-25 05:12] LABS: Troponin I High Sensitivity 24.4 pg/ml (0-14)
[2023-09-25] MEDS: LACTATED RINGER'S 1,000 ML IV SCH (05:19)
--- NOTE | 2023-09-25 05:24 | Emergency Department Note ---
ED Visit Note I was consulted by the Advanced Practice Provider. I personally made/approved the management plan and take responsibility for the patient management. I performed a substantive portion of the visit. This includes the aspects of: Personally seeing the patient MDM I independently interpreted the following studies: Chest x-ray and elbow x-rays which were negative .
--- NOTE | 2023-09-25 06:41 | XRay Report ---
RIGHT ELBOW 3 VIEWS CLINICAL HISTORY: Fall. FINDINGS: 3 views of the right elbow are compared to study dated 10/11/2017. The skeletal structures a re osteopenic. There is no radiographic evidence of acute fracture or dislocation. No joint effusion is identified. There is dorsal soft tissue swelling. A 12 mm well-corticated ossific density along th e radial aspect of the joint space is likely chronic. IMPRESSION: Soft tissue swelling with no radiographic evidence of acute fracture. Electronically signed by: Tank De La Paz M.D. 09/25/2023 6:38 AM
--- NOTE | 2023-09-25 07:00 | XRay Report ---
LEFT ELBOW 4 VIEWS CLINICAL HISTORY: Fall. Left elbow injury. FINDINGS: 4 views of the left elbow are obtained. No prior studies are available for comparison at th e time of dictation. The skeletal structures are osteopenic. There is no radiographic evidence of acu te fracture. No dislocation is seen. An enthesophyte is seen at the triceps insertion. There is bone overgrowth along the radial head. No joint effusion is identified. There is dorsal soft tissue edema. An IV catheter is present in the antecubital fossa. IMPRESSION: Dorsal soft tissue swelling with no radiographic evidence of acute fracture. Electronically signed by: Tank De La Paz M.D. 09/25/2023 6:59 AM
--- NOTE | 2023-09-25 07:11 | Electrocardiogram Report ---
Test Reason : Blood Pressure : / mmHG Vent. Rate : 070 BPM Atrial Rate : 070 BPM P-R Int : 160 ms QRS Dur : 084 ms QT Int : 424 ms P-R-T Axes : 090 012 082 degrees QTc Int : 457 ms Normal sinus rhythm Low voltage QRS Borderline ECG No previous ECGs available Confirmed by Emerson Abel ([id number]) on 09/25/2023 7:11:03 AM Referred By: REFERRED SELF Confirmed By:Grey Abel
--- NOTE | 2023-09-25 07:26 | XRay Report ---
SINGLE VIEW CHEST CLINICAL HISTORY: Fall. FINDINGS: An AP, portable, upright chest radiograph is correlated with chest CT dated 12/17/2022. The heart is enlarged. The pulmonary vasculature is noncongested. Chronic interstitial thickening is evelia lar to previous. There is bibasilar scarring/atelectasis. The lungs and pleural spaces are otherwise clear. No pneumothorax is seen. The skeletal structures are osteopenic. The bony thorax is grossly in tact. Arthritic change is seen in the shoulders and spine. IMPRESSION: Cardiomegaly with no acute cardiopulmonary abnormality identified. ACT 112: Negative or not required by law. Electronically signed by: Tank De La Paz M.D. 09/25/2023 7:24 AM
[2023-09-25] MEDS: POTASSIUM CHLORIDE CRTAB 20 MEQ TABCR PO STA (08:43)
[2023-09-25] MEDS: DOCUSATE SODIUM 100 MG CAP PO SCH (08:44)
[2023-09-25] MEDS: DONEPEZIL HCL 10 MG TAB PO SCH (08:45)
[2023-09-25] MEDS: lisinopril 5 MG TAB PO SCH (08:45)
[2023-09-25] MEDS: METOPROLOL SUCC 25MG EXT REL TAB PO SCH (08:46)
[2023-09-25] MEDS: SERTRALINE HCL 50 MG TABLET PO SCH (08:47)
[2023-09-25] MEDS: CARBIDOPA/LEVODOPA 25/100MG TAB PO SCH (08:47)
[2023-09-25] MEDS: ENOXAPARIN INJ 30 MG/0.3 ML SYR SQ SCH (08:48)
--- NOTE | 2023-09-25 13:20 | History & Physical Bridge Note ---
Date of Service September 25, 2023 History & Physical Bridge Note I have examined the patient, reviewed the History & Physical and in the interval since the performance of the History & Physical I have noted the following changes of clinical significance: Padmini is an 83 yo F who was admitted early this AM due to fall and generalized weakness. At time of admission, she was found to have elbow abrasions and ER w/u revealed a mildly elevated total CK and mildly elevated HS troponin. She was also found to have a mild hypokalemia of 3.3 and a leukocytosis with neutrophil predominance of 13.63. Imaging revealed significant distended bladder with severe right hydronephrosis. She lives alone in assisted living at the [facility]. Her past medical history includes dementia, HTN, anxiety and Parkinson's disease. She is currently being treated with IVF and her abrasions were dressed. She is awake and alert, [place] but cooperative and pleasant. She denies c/o joint pain, chest pain, dyspnea, n/v/d. She was able to eat some breakfast. She was seen and examined this AM, heart is regular, lungs are clear, abd is soft and nontender with normal bowel sounds throughout, and legs are without edema. Left elbow abrasion is dressed and dressing has some saturation. I have ordered a kaba due to severe hydronephrosis and bladder distention. UA and urine Cx has been ordered and will be collected at time of kaba insertion. If UA appears grossly infected, will start on IV Rocephin 1g daily (nka) and further treatment can be tailored according to final culture data. PT/OT to eval and treat. Remaining treatment and details as outlined in Dr. Brooks's H&P. Plan d/w Dr. Bee who is in agreement. Supervising Physician Co-Signing Physician Notes Spoke to the patient's family, Garima, informed that the patient has a history of pancreatic cancer diagnosed at [facility] about a year ago with reportedly a 2 cm pancreatic mass. She reportedly was given less than 6 months to live. On our CT scan there is no such mention of masses. I ask about her hydronephrosis the patient's family member did not recall being told about that. Patient herself is without distress for either issue she did have a fall and does have some contusions Will pursue CT pancreas to evaluate pancreas for possible mass. Patient has a pending lipase in the morning
[2023-09-25 14:06] LABS: Appearance Urine Clear (Clear); Bacteria Urine Automated None Seen (None Seen); Bilirubin Urine Negative (Negative); Blood Urine Negative (Negative); Cast Urine Automated 0-2 /lpf (0-2); Color Urine Yellow; Epithelial Cell Urine Auto 0-2 /hpf (0-2); Glucose Urine UA Negative (Negative); Ketones Urine Trace (Negative); Leukocyte Esterase Urine Negative (Negative); Mucus Urine Present (None Prsent); Nitrite Urine Negative (Negative); Protein Urine Trace (Negative); RBC Urine Automated 0-2 /hpf (0-2); Specific Gravity Urine 1.015 (1.000-1.030); Urobilinogen Urine Negative (Negative); WBC Urine Automated 0-5 /hpf (0-5); pH Urine 5.5 (4.5-7.5)
--- OUTSIDE RECORDS SUMMARY | 2023-09-25 16:34 | External Medical Summary | Summary of Care ---
Author Name Unknown Organization [facility] Address [address] [facility] [address] Phone [phone] Care Team Providers Care Silo Man Name Role Phone Charly Lemus Primary Care Provider Reason for Visit * Reason Onset Date Comments Test Results Lab 09/03/2023 Encounter Details Date Type Department Care Team (Late st Contact Info) Description 09/03/2023 Telephone Hematology/Oncology [facility] [place] [address] [facility] [place] [address] Nestor Barnes MD [address] [facility] [place] [address] Test Results Lab Allergies Active Allergy Reactions Criticality Noted Date Comments Pollen 06/21/2017 Tetanus Toxoid 10/20/1999 LOCAL REACTION ONLY documented as of this encounter (statuses as of 09/07/2023) Medications Medication Sig Dispensed Refills Start Date End Date Status VITAMIN E CAPS 400 IU OR Take 1 Capsule by mouth in the morning. Active CALTRATE 600 TABS 1500 MG OR 1 PILL DAILY Active VITAMIN D 1000 UNITS PO TABS Take by mouth. Active MULTIVITAL PO TABS Take by mouth. Pt takes this in a gummy form Active Carbidopa-Levodopa 25-100 MG Oral Tablet Take by mouth 2 times a day. Takes the 25-100- twice a day, than takes 50-200( takes 2 tablets in the evening) 225 Tablet 5 08/11/2021 Active LORazepam 0.5 MG Oral Tablet (Ativan) Take 1 Tablet by mouth as needed for Anxiety. 11/14/2018 Active Zinc 50 MG Oral CapsuleIndications :Zinc deficiency Take 1 Capsule (50 mg) by mouth in the morning. 90 Capsule 02/26/2022 Active Donepezil HCl 10 MG Oral Tablet (Aricept) Take 0.5 Tablets by mouth in the morning. Take with largest meal of the day. She now is taking a full tablet to equal 10mg daily . 08/03/2022 Active Carbidopa 25 MG Oral Tablet Take 1 Tablet by mouth in the morning. In the morning.. 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 30 Tablet 2 12/18/2022 Active Additional Information Patient not taking.Reported on 06/03/2023 Metoprolol Succinate ER 25 MG Oral Tablet Extended Release 24 Hour (toPROL XL)Indications:HTN , goal below 140/90 TAKE 1/2 TABLET BY MOUTH EVERY DAY 45 Tablet 3 03/10/2023 Active Lisinopril 5 MG Oral Tablet (Prinivil)Indicati ons:HTN, goal below 140/90 TAKE 1 TABLET BY MOUTH EVERY MORNING 90 Tablet 1 04/28/2023 Active Myrbetriq 25 MG Oral Tablet Extended Release 24 Hour (Mirabegron ER) TAKE 1 TABLET BY MOUTH EVERY MORNING 30 Tablet 4 08/18/2023 Active documented as of this encounter (statuses as of 09/07/2023) Active Problems Problem Noted Date Diagnosed Date Malignant neoplasm of body of pancreas 09/01/202 3 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 Esophageal reflux 05/18/2003 ALLERGIC RHINITIS - MIXED TYPE 05/18/2003 Loss of height 08/29/2001 Menopause Dysfunction of eustachian tube Sensorineural hearing loss, bilateral Presbyacusis documented as of this encounter (statuses as of 09/07/2023) Resolved Problems Problem Noted Date Diagnosed Date Resolved Date HYPERTENSION NOS 03/07/2009 Overview: Modified per HTN protocol #16. Other acute otitis externa 0 06/14/2008 Overview: Resolved per Benign Acute Dxs Protocol #3 documented as of this encounter (statuses as of 09/07/2023) Immunizations Name Administration Dates Next Due COVID-19 mRNA, LNP-s, No Pre serve, 2-Dose Series ([employer]) 02/13/2021,06/14/2020,05/24/2020 COVID-19, LNP-s, No Preserve , Christopher-sucrose, Ages 12+ (Pfizer) 08/26/2021 Season Influenza, Quad, PF, Adjuvanted, 65+ Yrs, IM (FLUAD) 01/24/2020 Seasonal Influenza, Quadriva lent, No Preserve, Mdck 01/04/2018 Seasonal Influenza, Recombin ant, RIV4, PF, (Flublock) 01/13/2017 Seasonal Influenza, Split, I IV3, With Preserve, Inj 01/26/2014,02/04/2013 Seasonal Influenza, Trivalen t, Adjuvanted, 65+ yrs 01/20/2019 Yellow Fever Vaccine, Live (YF-Vax) 01/08/2004 documented as of this encounter Social History Tobacco Use Types Packs/Day Years Used Date Smoking Tobacco: Never Smokeless Tobacco: Never Comments:no passive smoke ex posure Alcohol Use Standard Drinks/Week Comments Yes 0 (1 standard drink = 0.6 oz pure alcohol) As of 2.17.2006, the last noted alcohol intake was 7 ounces. 1-3 drinks/weekend Sex and Gender Information Value Date Recorded Sex Assigned at Not on file Gender Identity Not on file Sexual Orientation Not on file Job Start Date Occupation Industry Not on file Not on file Not on file documented as of this encounter Miscellaneous Notes * Telephone Encounter - Nestor Barnes MD - 09/07/2023 12:57 PM EDT - she had elevated CA 19-9 level and currently not on treatment sure her disease likely to progressbut progression appears to be quite low based on not much systemic symptoms as well as no significant rise in CA 19-9 level in short of time - It is possible she may have cancer spread at other sites which may or may not cause symptoms. - if the goal is to make her more comfortable and QOL then perhaps we should not be checking and talking about CA 19-9 level more frequently. * Telephone Encounter - Юлия Anderson LPN - 09/07/2023 10:55 AM EDT Spoke with patient's NieceGarima, who is a retired Nurse. Per patient's recent request informed Niece of result message from below. She states she did review the patient's lab work under the [employer] Chart application. She states she is leaving on her flight at 4:00 pm today to travel to [place] for one week. She is requesting to have the response sent in patient's [employer] message or "ok to leave a detailed message on her voicemail". Dr. Barnes: Patient's nieceGarima is requesting the following; She is asking to clarify the patient's prognosis? Is this increase with the CA 19-9 level "normal" for someone with pancreatic cancer? She is also asking if the cancer could be in another site given the minimal increase in the CA 19-9level? She states the patient continues to deny and symptoms and has intermittent "loose stools". * Telephone Encounter - Franchesca Aj OSA - 09/07/2023 10:24 AM EDT Garima called back Please call her again thank you * Telephone Encounter - Cinda Tanner OSA - 09/06/2023 7:51 AM EDT Please reach out to patients niece Garima she returned you call. She will not be available between 9-11 am today. [place] [phone]. * Telephone Encounter - Юлия Anderson LPN - 09/03/2023 11:33 AM EDT Left voicemail for patient's NieceGarima to return phone call, return phone number provided. Re: lab result note, non-urgent. * Telephone Encounter - Юлия Anderson LPN - 09/03/2023 11:30 AM EDT Called and spoke with patient, informed patient of the message from below. Patient verbalized understanding and is requesting this nurse call her Niece, Garima Brothers. Per patient request will contact patient's niece to tell her the results. * Telephone Encounter - Юлия Anderson LPN - 09/03/2023 11:20 AM EDT ----- Message from Nestor Barnes MD sent at 09/03/2023 8:03 AM EDT ----- Blood workup done on 09/02/2023: -WBC 8000, H&H of 12/37.4, Platelet count [id number] -BUN/Creat: 23/0.8, normal LFT. Calcium 8.7. -CA 19-9 level --> 214 Overall hormonal blood counts, normal kidney and liver function test Very minimal increase in the CA 19-9 level noted, It was around 196 earlier in May of 2023, now is around 214. Will continue to observe. See her in 3 months. documented in this encounter Plan of Treatment Upcoming Encounters Date Type Department Care Team (Late st Contact Info) Description 11/16/2023 2:00 PM EDT Telemedicine Urology Carmela Gallegos [address] [place] [address] [place] [address] Dominguez Carpio MD [address] [place] [address] [place] [address] 7, Telemed [facility] Urology [address] [place] [address] 12/17/2023 10:45 AM EDT Office Visit Hematology/Oncology [facility] [place] [address] [place] [address] Nestor Barnes MD [address] [place] [address] Health Maintenance Due Date Last Done Comments Depression Screening 1952 Albumin/Creatinine Ratio 07/09/1957 Zoster Vaccines (1 of 2) 07/09/1958 DXA Scan 11/05/2012 11/05/2005, 10/18, 11/05/2005, Additional history exists COVID-19 Vaccine ( season) 2023 01/26/2023, 08/26/2021, 02/13/2021, Additional history exists Influenza Vaccine (FLU shot) (Season Ended) 2023 01/24/2020, 01/20/2019, 01/04/2018, Additional history exists GFR 09/01/2024 09/02/2023, 05/20, 12/23/2022, Additional history exists Pneumococcal Vaccine: 65+ Years Completed 11/14/2018, 08/06/2014 GARDASIL-HPV IMMUNIZATION SERIES Aged Out No longer eligible based on patient's age to complete this topic Hepatitis B Aged Out No longer eligi ble based on patient's age to complete this topic MENINGOCOCCAL (MENACTRA/MENVEO) Aged Out No longer eligible based on patient's age to complete this topic documented as of this encounter Medical Devices Not on filedocumented as of this encounter Advance Directives Documents on File Type Date Recorded Patient Eyeglass Lens Grinder Expl anation POLST 06/17/2023 10:09 AM QI (Luba rae DNR) Care Teams Silo Man Relationship Specialty Start Date End Date Charly Lemus DO [address] [facility] [address] [place] [address] PCP - General Family Medicine 03/16/16 documented as of this encounter
--- OUTSIDE RECORDS SUMMARY | 2023-09-25 16:34 | External Medical Summary | Summary of Care ---
Author Name Unknown Organization [facility] Address [address] [facility] [address] Phone [phone] Care Team Providers Care Patient'S Librarian Name Role Phone Charly Lemus Primary Care Provider Reason for Visit * Reason Onset Date Comments Test Results Lab 09/03/2023 Encounter Details Date Type Department Care Team (Late st Contact Info) Description 09/03/2023 Telephone Hematology/Oncology [facility] [place] [address] [facility] [place] [address] Nestor Barnes MD [address] [facility] [place] [address] Test Results Lab Allergies Active Allergy Reactions [...] mRNA, LNP-s, No Pre serve, 2-Dose Series ([employer]) 02/13/2021,06/14/2020,05/24/2020 COVID-19, LNP-s, No Preserve , Christopher-sucrose, [...] encounter Miscellaneous Notes * Telephone Encounter - Franchesca Aj OSA - 09/07/2023 10:24 AM EDT Garima called back Please call her again thank you * Telephone Encounter - Cinda Tanner OSA - 09/06/2023 7:51 AM EDT Please reach out to patients yaneth Painting she returned you call. She will not be available between 9-11 am today. [place] [phone]. * Telephone Encounter - Юлия Anderson LPN [...] and is requesting this nurse call her NieceGarima. Per patient request will contact patient's niece to tell her the results. * Telephone Encounter - Юлия Anderson LPN - 09/03/2023 11:20 AM EDT ----- Message from Nestor Barnes MD sent at 09/03/2023 8:03 AM EDT ----- Blood workup done on 09/02/2023: -WBC 8000, H&H of 12/37.4, Platelet count [id number] -BUN/Creat: 23/0.8, normal LFT. Calcium 8.7. -CA [...] [address] [place] [address] [place] [address] Dominguez Carpio MD [address] [place] [address] [place] [address] 7, Telemed [facility] Urology Ex [address] [facility] [place] [address] 12/17/2023 10:45 AM EDT Office Visit Hematology/Oncology [facility] [place] [address] [facility] [place] [address] Nestor Barnes MD [address] [facility] [place] [address] Health Maintenance Due Date Last Done Comments [...] Documents on File Type Date Recorded Patient Professional Organizer Expl anation POLST 06/17/2023 10:09 AM QI (Luba rae DNR) Care Teams Patient'S Librarian Relationship Specialty Start Date End Date Charly Lemus DO [address] [address] PCP - General Family Medicine 03/16/16 documented as of this encounter
--- OUTSIDE RECORDS SUMMARY | 2023-09-25 16:34 | External Medical Summary | Summary of Care ---
Author Name Unknown Organization [facility] Address [address] [facility] [address] Phone [phone] Care Team Providers Care Parcel Post Truck Driver Name Role Phone Charly Lemus Primary Care Provider Reason for Visit * Reason Onset Date Comments Test Results Lab 09/03/2023 Encounter Details Date Type Department Care Team (Late st Contact Info) Description 09/03/2023 Telephone Hematology/Oncology [facility] [place] [address] [facility] [place] [address] Nestor Barnes MD [address] [facility] [place] [address] Test Results Lab Allergies Active Allergy Reactions Criticality Noted Date Comments Pollen 06/21/2017 Tetanus Toxoid 10/20/1999 LOCAL REACTION ONLY documented as of this encounter (statuses as of 09/06/2023) Medications Medication Sig Dispensed Refills Start Date [...] as of this encounter (statuses as of 09/06/2023) Active Problems Problem Noted Date Diagnosed Date [...] as of this encounter (statuses as of 09/06/2023) Resolved Problems Problem Noted Date Diagnosed Date Resolved Date HYPERTENSION NOS 03/07/2009 Overview: Modified per HTN protocol #16. Other acute otitis externa 0 06/14/2008 Overview: Resolved per Benign Acute Dxs Protocol #3 documented as of this encounter (statuses as of 09/06/2023) Immunizations Name Administration Dates Next Due COVID-19 mRNA, LNP-s, No Pre serve, 2-Dose Series ([employer]) 02/13/2021,06/14/2020,05/24/2020 COVID-19, LNP-s, No Preserve , Christopher-sucrose, Ages 12+ (Pfizer) 08/26/2021 Season Influenza, Quad, PF, Adjuvanted, 65+ Yrs, IM (FLUAD) 01/24/2020 Seasonal Influenza, Quadriva lent, No Preserve, Mdck 01/04/2018 Seasonal Influenza, Recombin ant, RIV4, PF, (Flublock) 01/13/2017 Seasonal Influenza, Split, I IV3, With Preserve, Inj 01/26/2014,02/04/2013 Seasonal Influenza, Trivalen t, Adjuvanted, 65+ yrs 01/20/2019 documented as of this encounter Social History Tobacco Use Types Packs/Day Years Used Date Smoking Tobacco: Never Smokeless Tobacco: Never Comments:no passive smoke ex posure Alcohol Use Standard Drinks/Week Comments Yes 0 (1 standard drink = 0.6 oz pure alcohol) As of 06.05.2006, the last noted alcohol intake was 7 ounces. 1-3 drinks/weekend Sex and Gender Information Value Date Recorded Sex Assigned at Not on file Gender Identity Not on file Sexual Orientation Not on file Job Start Date Occupation Industry Not on file Not on file Not on file documented as of this encounter Miscellaneous Notes * Telephone Encounter - Cinda Tanner OSA - 09/06/2023 7:51 AM EDT Please reach out to patients niharish Painting she returned you call. She will not be available between 9-11 am today. Pr [phone]. * Telephone Encounter - Юлия Anderson LPN - 09/03/2023 11:33 AM EDT Left voicemail for patient's NieceGarima to return phone call, return phone number provided. Re: lab result note, non-urgent. * Telephone Encounter - Юлия Anderson LPN - 09/03/2023 11:30 AM EDT Called and spoke with patient, informed patient of the message from MD below. Patient verbalized understanding and is requesting this nurse call her Niece, Garima Brothers. Per patient request will contact patient's niece to tell her the results. * Telephone Encounter - Юлия Anderson LPN - 09/03/2023 11:20 AM EDT ----- Message from Nestor Barnes MD sent at 09/03/2023 8:03 AM EDT ----- Blood workup done on 09/02/2023: -WBC 8000, H&H of 12/37.4, Platelet count [id number] -BUN/Creat: 23/0.8, normal LFT. Calcium 8.7. -CA 19-9 level --> 214 Overall hormonal blood counts, normal kidney and liver function test Very minimal increase in the CA 19-9 level noted, It was around 196 earlier in February of 2024, now is around 214. Will continue to observe. See her in 3 months. documented in this encounter Plan of Treatment Upcoming Encounters Date Type Department Care Team (Late st Contact Info) Description 11/16/2023 2:00 PM EDT Telemedicine Urology Carmela Gallegos [address] [place] [address] [place] [address] Dominguez Carpio MD [address] [place] [address] [place] [address] 7, Telemed [facility] Urology [address] [place] [address] 12/17/2023 10:45 AM EDT Office Visit Hematology/Oncology [facility] [address] [facility] [place] [address] Nestor Barnes MD [address] [facility] [place] [address] Health Maintenance Due Date Last Done Comments [...] Documents on File Type Date Recorded Patient Clothes Wringer Expl anation POLST 06/17/2023 10:09 AM POLST (Luba rae DNR) Care Teams Parcel Post Truck Driver Relationship Specialty Start Date End Date Charly Lemus DO [address] [place] [address] [place] [address] PCP - General Family Medicine 03/16/16 documented as of this encounter
--- OUTSIDE RECORDS SUMMARY | 2023-09-25 16:34 | External Medical Summary | Summary of Care ---
Author Name Unknown Organization [facility] Address [address] [place] [address] Phone [phone] Care Team Providers Care Tie Fastener Name Role Phone Charly Lemus Primary Care Provider Reason for Visit * Reason Onset Date Comments Appointment 06/21/2023 Encounter Details Date Type Department Care Team (Late st Contact Info) Description 06/21/2023 Telephone Access Center, [address] *DO NOT REMOVE THIS DEPARTMENT* [place] [address] Specified, Zz No Resource [address] [place] [address] Appointment Allergies Active Allergy Reactions Criticality Noted Date Comments Pollen 06/21/2017 Tetanus Toxoid 10/20/1999 LOCAL REACTION ONLY documented as of this encounter (statuses as of 09/20/2023) Medications Medication Sig Dispensed Refills Start Date [...] EVERY MORNING 90 Tablet 1 04/28/2023 Active documented as of this encounter (statuses as of 09/20/2023) Active Problems Problem Noted Date Diagnosed Date Malignant neoplasm of body of pancreas 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 Esophageal reflux 05/18/2003 ALLERGIC RHINITIS - MIXED TYPE 05/18/2003 Loss of height 08/29/2001 Menopause Dysfunction of eustachian tube Sensorineural hearing loss, bilateral Presbyacusis documented as of this encounter (statuses as of 09/20/2023) Resolved Problems Problem Noted Date Diagnosed Date Resolved Date HYPERTENSION NOS 03/07/2009 Overview: Modified per HTN protocol #16. Other acute otitis externa 0 06/14/2008 Overview: Resolved per Benign Acute Dxs Protocol #3 documented as of this encounter (statuses as of 09/20/2023) Immunizations Name Administration Dates Next Due COVID-19 mRNA, LNP-s, No Pre serve, 2-Dose Series (Pfizer) 02/13/2021,06/14/2020,05/24/2020 COVID-19, LNP-s, No Preserve , Christopher-sucrose, [...] = 0.6 oz pure alcohol) As of 2..2006, the last noted alcohol intake was 7 ounces. 1-3 drinks/weekend Sex and Gender Information Value Date Recorded Sex Assigned at Not on file Gender Identity Not on file Sexual Orientation Not on file Job Start Date Occupation Industry Not on file Not on file Not on file documented as of this encounter Miscellaneous Notes * Telephone Encounter - Anamika Feliz PA-C - 06/21/2023 9:37 AM EST Please offer close in release spot 07/01/23 at 220 * Telephone Encounter - Chayo Poole OSA - 06/21/2023 8:58 AM EST Requested Information from caller: Who is calling; pt Provider patient is established with: Niki Feliz What is the concern or issue they are having: Had to cxl appt but Can come 06/28-15th in PM needs 1 mo f/u Any additional details to add: none Pts phone number for nurse to call back: [phone] documented in this encounter Plan of Treatment Upcoming Encounters Date Type Department Care Team (Late st Contact Info) Description 09/27/2023 10:30 AM EDT Nutrition Services Nutrition, Verónica Finley [address] [place] [address] Priyanka Flores, [place] [address] [place] [address] 11/16/2023 2:00 PM EDT Telemedicine Urology Carmela Gallegos [address] [place] [address] [place] [address] Dominguez Carpio MD [address] [place] [address] [place] [address] 7, Telemed [facility] Urology [address] [place] [address] 12/17/2023 10:45 AM EDT Office Visit Hematology/Oncology [facility] [address] [place] [address] Nestor Barnes MD [address] [place] [address] Health Maintenance Due Date Last Done Comments [...] Documents on File Type Date Recorded Patient Enrollment Eligibility Representative Expl anation POLST 06/17/2023 10:09 AM QI (Luba rae DNR) Care Teams Tie Fastener Relationship Specialty Start Date End Date Charly Lemus DO [address] [place] [address] PCP - General Family Medicine 03/16/16 documented as of this encounter
--- OUTSIDE RECORDS SUMMARY | 2023-09-25 16:34 | External Medical Summary | Summary of Care ---
Author Name Unknown Organization [facility] Address [address] [facility] [address] Phone [phone] Care Team Providers Care Care Director Name Role Phone Charly Lemus Primary Care Provider Reason for Visit * Reason Onset Date Comments Test Results Lab 09/03/2023 Encounter Details Date Type Department Care Team (Late st Contact Info) Description 09/03/2023 Telephone Hematology/Oncology [facility] [place] [address] [facility] [place] [address] Nestor Barnes MD [address] [facility] [place] [address] Test Results Lab Allergies Active Allergy Reactions [...] mRNA, LNP-s, No Pre serve, 2-Dose Series ([employer]) 02/13/2021,06/14/2020,05/24/2020 COVID-19, LNP-s, No Preserve , Christopher-sucrose, [...] encounter Miscellaneous Notes * Telephone Encounter - Юлия Anderson LPN - 09/07/2023 10:55 AM EDT Spoke with patient's NieceGarima, who is a retired Nurse. Per patient's recent request informed Niece of result message from below. She states she did review the patient's lab work under the My Chart application. She states she is leaving on her flight at 4:00 pm today to travel to [place] for one week. She is requesting to have the response sent in patient's [employer] message or "ok to leave a detailed [...] not be available between 9-11 am today. [place] [phone]. * Telephone Encounter - Юлия Anderson LPN [...] -WBC 8000, H&H of 12/37.4, Platelet count [id number] -BUN/Creat: 23/0.8, normal LFT. Calcium 8.7. -CA [...] 2:00 PM EDT Telemedicine Urology Carmela Gallegos [address] [place] [address] [place] [address] Dominguez Carpio MD [address] [place] [address] [place] [address] 7, Telemed [facility] Urology Ex Rm [address] [place] [address] 12/17/2023 10:45 AM EDT Office Visit Hematology/Oncology [facility] [place] [address] [facility] [place] [phone] Nestor Barnes MD [address] [facility] [place] [address] Health Maintenance Due Date Last Done Comments [...] Documents on File Type Date Recorded Patient Director Sales And Marketing Expl anation POLST 06/17/2023 10:09 AM POL (Luba rae DNR) Care Teams Care Director Relationship Specialty Start Date End Date Charly Lemus DO [address] [place] [address] [place] [address] PCP - General Family Medicine 03/16/16 documented as of this encounter
--- OUTSIDE RECORDS SUMMARY | 2023-09-25 16:34 | External Medical Summary | Summary of Care ---
Author Name Unknown Organization [facility] Address [address] [facility] [address] Phone [phone] Care Team Providers Care Nursing Services Manager Name Role Phone Charly Lemus Primary Care Provider Reason for Visit * Reason Onset Date Comments Test Results Lab 09/03/2023 Encounter Details Date Type Department Care Team (Late st Contact Info) Description 09/03/2023 Telephone Hematology/Oncology [facility] [place] [address] [facility] [place] [phone] Nestor Barnes MD [address] [facility] [place] [address] Test Results Lab Allergies Active Allergy Reactions [...] mRNA, LNP-s, No Pre serve, 2-Dose Series ([employer]) 02/13/2021,06/14/2020,05/24/2020 COVID-19, LNP-s, No Preserve , Christopher-sucrose, [...] not be available between 9-11 am today. Mo [phone]. * Telephone Encounter - Юлия Anderson LPN [...] -WBC 8000, H&H of 12/37.4, Platelet count [id number] -BUN/Creat: 23/0.8, normal LFT. Calcium 8.7. -CA [...] [address] [place] [address] [place] [address] Dominguez Carpio MD [address] [place] [address] [place] [address] 7, Telemed [facility] Urology Ex R[address] [place] [address] 12/17/2023 10:45 AM EDT Office Visit Hematology/Oncology [facility] [place] [address] [facility] [place] [phone] Nestor Barnes MD [address] [facility] [place] [address] Health Maintenance Due Date Last Done Comments Depression Screening 1952 Albumin/Creatinine Ratio 07/09/1957 Zoster Vaccines (1 of 2) 07/09/1958 DXA Scan 11/05/2012 11/05/2005, 10/18, 11/05/2005, Additional history exists COVID-19 Vaccine (2022- season) 2023 01/26/2023, 08/26/2021, 02/13/2021, Additional history [...] Documents on File Type Date Recorded Patient Board Operator Expl anation POLST 06/17/2023 10:09 AM QI (Luba rae DNR) Care Teams Nursing Services Manager Relationship Specialty Start Date End Date Charly Lemus DO [address] [place] [address] PCP - General Family Medicine 03/16/16 documented as of this encounter
--- OUTSIDE RECORDS SUMMARY | 2023-09-25 16:34 | External Medical Summary | Summary of Care ---
Author Name Unknown Organization [facility] Address [address] [place] [address] Phone [phone] Care Team Providers Care Panel Builder Name Role Phone Allan Charly Mari Primary Care Provider Reason for Visit * Reason Onset Date Comments Medical Nutrition Therapy 09/17/2023 Encounter Details Date Type Department Care Team (Late st Contact Info) Description 09/17/2023 8:00 AM EDT Scheduled Telephone Verónica Solo [address] [place] [address] Priyanka Flores, BRENDEN [address] [place] [address] Allergies Active Allergy Reactions Criticality Noted Date Comments Pollen 06/21/2017 Tetanus Toxoid 10/20/1999 LOCAL REACTION ONLY documented as of this encounter (statuses as of 09/17/2023) Medications Medication Sig Dispensed Refills Start Date [...] as of this encounter (statuses as of 09/17/2023) Active Problems Problem Noted Date Diagnosed Date Malignant neoplasm of body of pancreas 3 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 Esophageal reflux 05/18/2003 ALLERGIC RHINITIS - MIXED TYPE 05/18/2003 Loss of height 08/29/2001 Menopause Dysfunction of eustachian tube Sensorineural hearing loss, bilateral Presbyacusis documented as of this encounter (statuses as of 09/17/2023) Resolved Problems Problem Noted Date Diagnosed Date Resolved Date HYPERTENSION NOS 03/07/2009 Overview: Modified per HTN protocol #16. Other acute otitis externa 0 06/14/2008 Overview: Resolved per Benign Acute Dxs Protocol #3 documented as of this encounter (statuses as of 09/17/2023) Immunizations Name Administration Dates Next Due COVID-19 mRNA, LNP-s, No Pre serve, 2-Dose Series ([employer]) 02/13/2021,06/14/2020,05/24/2020 COVID-19, LNP-s, No Preserve , Christopher-sucrose, [...] = 0.6 oz pure alcohol) As of 2.2006, the last noted alcohol intake was 7 ounces. 1-3 drinks/weekend Sex and Gender Information Value Date Recorded Sex Assigned at Not on file Gender Identity Not on file Sexual Orientation Not on file Job Start Date Occupation Industry Not on file Not on file Not on file documented as of this encounter Miscellaneous Notes * Telephone Encounter - Priyanka Flores RDN - 09/17/2023 9:08 AM EDT Spoke with pt over the phone to follow-up with pt after canceled nutrition follow-up visit from August 10. Patient was having difficulty hearing me over the phone, and was uncertain who I was despite introducing myself on the phone. Suggested we have an in-person visit and she is agreeable. Nutrition follow-up visit scheduled for September 26 at 10:30-pt aware. Reminded her of where I am located. Priyanka Flores RDN, Clinical Dietitian II, [facility] Clinical Nutrition Services [facility] [address] [place] [address] Available via [employer] Portal documented in this encounter Plan of Treatment Upcoming Encounters Date Type Department Care Team (Late st Contact Info) Description 09/27/2023 10:30 AM EDT Nutrition Services Nutrition, Verónica Finley [address] [place] [address] Priyanka Flores RDN [address] [place] [address] 11/16/2023 2:00 PM EDT Telemedicine Urology Carmela Gallegos [address] [place] [address] [place] [address] Dominguez Carpio MD [address] [place] [address] [place] [address] 7, Telemed [facility] Finley Urology [address] [place] [address] 12/17/2023 10:45 AM EDT Office Visit Hematology/Oncology [address] [place] [phone] Nestor Barnes MD [address] [place] [address] Health Maintenance Due Date Last Done Comments [...] Documents on File Type Date Recorded Patient Statistical Machine Mechanic Expl anation POLST 06/17/2023 10:09 AM POLST (Luba rae DNR) Care Teams Panel Builder Relationship Specialty Start Date End Date Charly Lemus DO [address] [place] [address] PCP - General Family Medicine 03/16/16 documented as of this encounter
--- OUTSIDE RECORDS SUMMARY | 2023-09-25 16:34 | External Medical Summary | Summary of Care ---
Author Name Unknown Organization [facility] Address [address] [facility] [address] Phone [phone] Care Team Providers Care Warper Creeler Name Role Phone Charly Lemus Primary Care Provider Reason for Visit * Reason Onset Date Comments Test Results Lab 09/03/2023 Encounter Details Date Type Department Care Team (Late st Contact Info) Description 09/03/2023 Telephone Hematology/Oncology [facility] [place] [address] [facility] [place] [phone] Nestor Barnes MD [address] [facility] [place] [address] Test Results Lab Allergies Active Allergy Reactions [...] mRNA, LNP-s, No Pre serve, 2-Dose Series ([employer]) 02/13/2021,06/14/2020,05/24/2020 COVID-19, LNP-s, No Preserve , Christopher-sucrose, [...] review the patient's lab work under the [employer] Chart application. She states she is leaving on her flight at 4:00 pm today to travel to [place] for one week. She is requesting to have the response sent in patient's [email or web address] message or "ok to leave a detailed [...] not be available between 9-11 am today. Fl [phone]. * Telephone Encounter - Юлия Anderson LPN [...] -WBC 8000, H&H of 12/37.4, Platelet count [id number] -BUN/Creat: 23/0.8, normal LFT. Calcium 8.7. -CA [...] [address] [place] [address] [place] [address] Dominguez Carpio MD [address] [place] [address] [place] [address] 7, Telemed [facility] Urology Ex Rm [address] [place] [address] 12/17/2023 10:45 AM EDT Office Visit Hematology/Oncology [facility] [place] [address] [place] [address] Nestor Barnes MD [address] [place] [address] Health Maintenance Due Date Last Done Comments [...] Documents on File Type Date Recorded Patient Asbestos Siding Mechanic Expl anation POLST 06/17/2023 10:09 AM QI (Luba rae DNR) Care Teams Warper Creeler Relationship Specialty Start Date End Date Charly Lemus DO [address] [facility] [address] [place] [address] PCP - General Family Medicine 03/16/16 documented as of this encounter
--- OUTSIDE RECORDS SUMMARY | 2023-09-25 16:35 | External Medical Summary ---
Author Name Unknown Address Unknown Organization [id number]:[facility] - [address] [facility] [place] [address] Laboratory Report Ordering Provider Test Date Status JONATHAN ALLEN 09/02/2023 16:13:37 Final Observation Date Value Abnormality Reference (Units ) Status BUN 09/02/2023 16:13:37 23 Above high normal 6-20 (mg/dL) Final Creatinine 09/02/2023 16:13:37 0.8 0.5-1.0 (mg/dL) Final Glomerular filtration rate/1.73 sq M.predicted [Volume Rate/Area] in Serum, Plasma or Blood by Creatinine-based formula (CKD-EPI) 09/02/2023 16:13:37 76 >=60 (mL/min) Final eGFR is calculated based on the CKD-EPI 2020 equation Sodium 09/02/2023 16:13:37 141 135-146 (m mol/L) Final Potassium 09/02/2023 16:13:37 4.1 3.5-5.1 (m mol/L) Final Cl 09/02/2023 16:13:37 103 98-107 (mm ol/L) Final CO2 09/02/2023 16:13:37 27 22-32 (mmo l/L) Final Anion gap 09/02/2023 16:13:37 11 7-15 (mmol /L) Final Glucose 09/02/2023 16:13:37 85 70-120 (mg /dL) Final Albumin 09/02/2023 16:13:37 4.1 3.8-5.0 (g /dL) Final AST (Aspartate aminotransferase) 09/02/2023 16:13:37 25 10-35 (U/L) Final Alk Phos 09/02/2023 16:13:37 70 35-130 (U/ L) Final Bilirubin, Total 09/02/2023 16:13:37 0.3 <=1 .2 (mg/dL) Final Calcium 09/02/2023 16:13:37 8.7 8.4-10.2 ( mg/dL) Final Protein 09/02/2023 16:13:37 6.0 6.0-8.3 (g /dL) Final ALT (Alanine aminotransferase) 09/02/2023 16:13:37 13 10-35 (U/L) Final Performing Location [facility] - [address] [facility] [address]
--- OUTSIDE RECORDS SUMMARY | 2023-09-25 16:35 | External Medical Summary | Summary of Care ---
Author Name Unknown Organization [facility] Address [address] [place] [address] Phone [phone] Care Team Providers Care Business School Dean Name Role Phone Allan Charly Mari Primary Care Provider Reason for Visit * Reason Comments Outpatient Testing Encounter Details Date Type Department Care Team (Late st Contact Info) Description 09/02/2023 4:00 PM EDT Laboratory Laboratory [facility] [place] [address] [place] [phone] [place], [address] [place] [address] Arrived Allergies Active Allergy Reactions Criticality Noted Date Comments Pollen 06/21/2017 Tetanus Toxoid 10/20/1999 LOCAL REACTION ONLY documented as of this encounter (statuses as of 09/02/2023) Medications Medication Sig Dispensed Refills Start Date End Date Status VITAMIN E CAPS 400 IU OR Take 1 Capsule by mouth in the morning. 0 Active CALTRATE 600 TABS 1500 MG OR 1 PILL DAILY 0 Active VITAMIN D 1000 UNITS PO TABS Take by mouth. 0 Active MULTIVITAL PO TABS Take by mouth. Pt takes this in a gummy form 0 Active Carbidopa-Levodopa 25-100 MG Oral Tablet Take by mouth 2 times a day. Takes the 25-100- twice a day, than takes 50-200( takes 2 tablets in the evening) 225 Tablet 5 08/11/2021 Active LORazepam 0.5 MG Oral Tablet (Ativan) Take 1 Tablet by mouth as needed for Anxiety. 0 11/14/2018 Active Zinc 50 MG Oral CapsuleIndications :Zinc deficiency Take 1 Capsule (50 mg) by mouth in the morning. 90 Capsule 0 02/26/2022 Active Donepezil HCl 10 MG Oral Tablet (Aricept) Take 0.5 Tablets by mouth in the morning. Take with largest meal of the day. She now is taking a full tablet to equal 10mg daily . 0 08/03/2022 Active Carbidopa 25 MG Oral Tablet Take 1 Tablet by mouth in the morning. In the morning.. 0 09/15/2022 Active Ciclopirox 8 % External Solution APPLY TOPICALLY TO AFFECTED AREA(S) ON TOENAILS EVERY DAY FOR 24 WEEKS 0 08/17/2022 Active Sertraline HCl 25 MG Oral Tablet (Zoloft) TAKE 1 AND 1/2 TABLETS BY MOUTH ONE TIME DAILY 0 10/07/2022 Active Ondansetron HCl 8 MG Oral [...] as of this encounter (statuses as of 09/02/2023) Active Problems Problem Noted Date Diagnosed Date [...] as of this encounter (statuses as of 09/02/2023) Resolved Problems Problem Noted Date Diagnosed Date Resolved Date HYPERTENSION NOS 03/07/2009 Overview: Modified per HTN protocol #16. Other acute otitis externa 0 06/14/2008 Overview: Resolved per Benign Acute Dxs Protocol #3 documented as of this encounter (statuses as of 09/02/2023) Immunizations Name Administration Dates Next Due COVID-19 mRNA, LNP-s, No Pre serve, 2-Dose Series ([employer]) 02/13/2021,06/14/2020,05/24/2020 COVID-19, LNP-s, No Preserve , Christopher-sucrose, [...] on file documented as of this encounter Plan of Treatment Upcoming Encounters Date Type Department Care Team (Late st Contact Info) Description 11/16/2023 2:00 PM EDT Telemedicine Urology Carmela Gallegos [address] [place] [address] [place] [address] Dominguez Carpio MD [address] [place] [address] [place] [address] 7, Telemed [facility] Urology [address] [place] [address] 12/17/2023 10:45 AM EDT Office Visit Hematology/Oncology [facility] [address] [facility] [place] [address] Nestor Barnes MD [address] [facility] [place] [address] Health Maintenance Due Date Last Done Comments Depression Screening 1952 Albumin/Creatinine Ratio 07/09/1957 Zoster Vaccines (1 of 2) 07/09/1958 DXA Scan 11/05/2012 11/05/2005, 10/18, 11/05/2005, Additional history exists Influenza Vaccine (FLU shot) (Season Ended) 2023 01/24/2020, 01/20/2019, 01/04/2018, Additional history exists GFR 06/03/2024 06/03/2023, 090 09/2022, 09/04/2022, Additional history exists Pneumococcal Vaccine: 65+ Years Completed 11/14/2018, 08/06/2014 COVID-19 Vaccine Completed 01/26/2023, 01/2022, 02/13/2021, Additional history exists GARDASIL-HPV IMMUNIZATION SERIES Aged Out No longer [...] Documents on File Type Date Recorded Patient Sas Etl Developer Expl anation QI 06/17/2023 10:09 AM QI ([place] rae DNR) Care Teams Business School Dean Relationship Specialty Start Date End Date Charly Lemus DO [address] [place] [address] PCP - General Family Medicine 03/16/16 documented as of this encounter
--- OUTSIDE RECORDS SUMMARY | 2023-09-25 16:35 | External Medical Summary ---
Author Name Unknown Address Unknown Organization K09:[facility] [place] [address] Laboratory Report Ordering Provider Test Date Status JONATHAN ALLEN 09/02/2023 16:13:37 Final Observation Date Value Abnormality Reference (Units ) Status WBC, Total 09/02/2023 16:13:37 8.02 4.00-10.8 0 (K/uL) Final RBC 09/02/2023 16:13:37 3.84 3.85-5.15 (M/uL) Final Hemoglobin 09/02/2023 16:13:37 12.1 12.0-15.3 (g/dL) Final HCT 09/02/2023 16:13:37 37.4 36.0-45.2 (%) Final MCV 09/02/2023 16:13:37 97.4 81.5-97.5 (fL) Final MCH 09/02/2023 16:13:37 31.5 27.0-34.0 (pg) Final MCHC 09/02/2023 16:13:37 32.4 32.0-36.0 (g/dL) Final RDW 09/02/2023 16:13:37 13.7 11.5-15.5 (%) Final Platelets 09/02/2023 16:13:37 187 140-400 (K /uL) Final MPV 09/02/2023 16:13:37 11.0 6.6-11.1 ( fL) Final Performing Location [facility] [place] [address]
--- OUTSIDE RECORDS SUMMARY | 2023-09-25 16:35 | External Medical Summary | Summary of Care ---
Author Name Unknown Organization [facility] Address [address] [facility] [address] Phone [phone] Care Team Providers Care Environmental Services Assistant Name Role Phone Charly Lemus Primary Care Provider Reason for Visit * Reason Comments Follow Up Encounter Details Date Type Department Care Team (Late st Contact Info) Description 09/02/2023 3:15 PM EDT Office Visit Hematology/Oncology [facility] [place] [address] [facility] [place] [address] Nestor Barnes MD [address] [facility] [place] [address] Malignant neoplasm of body of pancreas (HCC)*; 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); Lung nodules Allergies Active Allergy Reactions Criticality Noted Date [...] mRNA, LNP-s, No Pre serve, 2-Dose Series ([employer]) 02/13/2021,06/14/2020,05/24/2020 COVID-19, LNP-s, No Preserve , Christopher-sucrose, [...] on file documented as of this encounter Last Filed Vital Signs Vital Sign Reading Time Taken Comments Blood Pressure 152/95 09/02/2023 3:39 PM EDT Pulse 66 09/02/2023 3:39 PM EDT Temperature 36.5 C (97.7 F) 09/02/2023 3:39 PM ED T Respiratory Rate 16 09/02/2023 3:39 PM EDT Oxygen Saturation 97% 09/02/2023 3:39 PM EDT Inhaled Oxygen Concentration - - Weight 36.4 kg (80 lb 3.2 oz) 09/02/2023 3:39 PM EDT Height - - Body Mass Index 15.66 06/30/2023 10:40 AM EDT documented in this encounter Progress Notes * Nestor Barnes MD - 09/02/2023 2:57 PM EDT PADMINI CAMPOS MR # [id number] :1940 83-year-old female, Date of consultation:12/16/2022 DIAGNOSIS: 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 - right hydronephrosis because of 2.1 cm right adnexal soft tissue mass. CA 19-9 level --> 194 (September 2022). CURRENT TREATMENT: - Currently she is not on specific treatment. Earlier we talked about gemcitabine single agent chemotherapy but she would like to hold on for starting any kind of systemic treatment. DIAGNOSTIC WORKUP: She had about 25 lb weight loss on last one to 2 years. She did not have any abdominal pain, nausea, vomiting, diarrhea or constipation. . She had routine CT scan of the abdomen as follows: CT scan of the chest, abdomen pelvis on 10/07/2022). 1. 2.3 x 4.4 x 3.7 cm pancreatic mass encasing approximally 180 degrees of the superior mesenteric artery and encasing the entire splenic artery. Occlusion of the splenic vein is visualized. 2. 2.1 cm nodule in the right adnexa at the transitional point of the right ureter with moderate tosevere right hydroureteronephrosis. A peritoneal metastases must be considered. It is inseparable from the heterogeneous uterus. 3. 1.0 cm peritoneal nodule at the dome of the bladder, suspicious for metastatic disease. 4. Trace ascites. 5. 0.7 x 1.2 cm lymph node in the anterior mediastinum. 6. A few pulmonary nodules are seen with the largest measuring 0.6 cm. Metastatic disease cannot beexcluded attention on follow-up is recommended. Upper GI endoscopic ultrasound on 10/16/2022: -2.8 cm pancreatic body mass, staged as T4 N0 -1.8 cm cyst in the left lobe of the liver -FNA from the pancreatic mass (10/16/2022 ) --> atypical cells present. Another biopsy from the pancreatic mass (12/07/2022 ) --> adenocarcinoma. -CA 19-9 level --> 194 (10/09/2022). OTHER IMPORTANT HISTORY: -Parkinson's disease -hypertension -anxiety/depression, she is on Zoloft -she had a fall about 3 to 4 months back. History of atypical ductal hyperplasia of the breast, about 10 year back. Twin brother unexpectedly, most likely CV stroke. No other family member with cancer diagnosis. INTERVAL HISTORY: She has come the clinic for the follow-up, she came to clinic by herself, her niece was on the phone. Ambulating with the help of the walker. Currently she is at [facility]. Denies any abdominal pain, no nausea no vomiting, fair appetite, current weight 80 lb, mild intermittent diarrhea, she takes Imodium for the symptomatic, twice a day, no bleeding from the sites, no leg edema. No neuropathy symptoms Past Medical History: Diagnosis Date Dysfunction of eustachian tube Esophageal reflux HTN, goal to be determined Menopause Other acute otitis externa Presbyacusis Sensorineural hearing loss, bilateral Past Surgical History: Procedure Laterality Date BIOPSY OF BREAST, OPEN Breast Biopsy, Benign Disease EGD, FLEXIBLE, DIAGNOSTIC N/A 10/16/2022 LA grade A reflux esophagitis/small hiatal hernia/EGD/MN EGD, W/ENDOSCOPIC US 12/07/2022 GB sludge, pancreatic adenocarcinoma / ESOPHAGOGASTRODUODENOSCOPY (EGD), FLEXIBLE, TRANSORAL, ENDOSCOPIC ULTRASOUND performed by Deangelo Deng DO at [facility]COPY [facility]IS[facility]LL[facility] ([facility] ONLY) 04/19/1988 left elbow crushed/repaired REMOVAL OF TONSILS, AGE 12+ Tonsils Removal,12+ Y/O US ENDOSCOPIC N/A 10/16/2022 28mm mass pancreatic body/cyst liver/biopsies from mass nondiagnostic/EUS/MN Current Outpatient Medications Medication Sig Dispense Refill VITAMIN E CAPS 400 IU OR Take 1 Capsule by mouth in the morning. CALTRATE 600 TABS 1500 MG OR 1 PILL DAILY (Patient not taking: Reported on 12/07/2022) VITAMIN D 1000 UNITS PO TABS Take by mouth. MULTIVITAL PO TABS Take by mouth. Pt takes this in a gummy form Carbidopa-Levodopa 25-100 MG Oral Tablet Take by mouth 2 times a day. Takes the 25-100- twice a day, than takes 50-200( takes 2 tablets in the evening) 225 Tablet 5 LORazepam 0.5 MG Oral Tablet (Ativan) Take 1 Tablet by mouth as needed for Anxiety. Zinc 50 MG Oral Capsule Take 1 Capsule (50 mg) by mouth in the morning. 90 Capsule 0 Donepezil HCl 10 MG Oral Tablet (Aricept) Take 0.5 Tablets by mouth in the morning. Take with largest meal of the day. She now is taking a full tablet to equal 10mg daily . Carbidopa 25 MG Oral Tablet Take 1 Tablet by mouth in the morning. In the morning.. Ciclopirox 8 % External Solution APPLY TOPICALLY TO AFFECTED AREA(S) ON TOENAILS EVERY DAY FOR 24 WEEKS (Patient not taking: Reported on 12/07/2022) Sertraline HCl 25 MG Oral Tablet (Zoloft) TAKE 1 AND 1/2 TABLETS BY MOUTH ONE TIME DAILY Ondansetron HCl 8 MG Oral Tablet (Zofran) Take 1 Tablet by mouth every 8 hours as needed for Nausea. (Patient not taking: Reported on 02/25/2023) 30 Tablet 2 Prochlorperazine Maleate 10 MG Oral Tablet (Compazine) Take 1 Tablet by mouth every 6 hours as needed for Nausea. (Patient not taking: Reported on 06/03/2023) 30 Tablet 2 Metoprolol Succinate ER 25 MG Oral Tablet Extended Release 24 Hour (toPROL XL) TAKE 1/2 TABLET BY MOUTH EVERY DAY 45 Tablet 3 Lisinopril 5 MG Oral Tablet (Prinivil) TAKE 1 TABLET BY MOUTH EVERY MORNING 90 Tablet 1 Myrbetriq 25 MG Oral Tablet Extended Release 24 Hour (Mirabegron ER) TAKE 1 TABLET BY MOUTH EVERY MORNING 30 Tablet 4 No current facility-administered medications for this visit. Family History Problem Relation Age of Onset Other (DM, PACEMAKER, MACULAR DEGENERATION) Mother 92 Other ([place]) Father 80 Other (BENIGN BRAIN TUMOR) Brother TWIN Social History Socioeconomic History Marital status: Spouse name: Reinier Number of children: 0 Years of education: Not on file Highest education level: Not on file Occupational History Not on file Tobacco Use Smoking status: Never Smokeless tobacco: Never Tobacco comments: no passive smoke exposure Substance and Sexual Activity Alcohol use: Yes Alcohol/week: 0.0 standard drinks of alcohol Comment: As of 06.05.2006, the last noted alcohol intake was 7 ounces. 1-3 drinks/weekend Drug use: No Sexual activity: Not on file Other Topics Concern Not on file Social History Narrative [employer] INFORMATION ENIVIRONMENTAL HISTORY: House: [place] Type of Heating System: Electric and Heat pump Air Conditioning: Yes Central Basement: Finished and dry Home have cockroaches: no Irritants in the home: Scented Candles Patient's bedroom: FLOOR: first TYPE OF MICHAEL: Hardwood Beds: AMOUNT : 1 TYPE OF BEDS: Mattress and Box spring Pillows: AMOUNT: 4 TYPE OF PILLOWS: 1 Feather (down) and Foam Bedroom contains: Bookshelves/Books and Collectibles (mahesh nacs) Pets: none 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; See Occupational Environment Encounter Entered By: Giancarlo Montemayor MD 05/18/2003 Social Determinants of Health Financial Resource Strain: Not on file Food Insecurity: Not on file Transportation Needs: Not on file Physical Activity: Not on file Stress: Not on file Social Connections: Not on file Intimate Partner Violence: Not on file Housing Stability: Not on file On Exam: BP 152/95 (BP Site: Left Arm, BP Position: Sitting, BP Cuff Size: Pediatric) | Pulse 66 | Temp 36.5C (97.7 F) (Tympanic) | Resp 16 | Wt 36.4 kg (80 lb 3.2 oz) | SpO2 97% | BMI 15.66 kg/m | BSA1.24 m Constitutional: Patient is alert, cooperative and oriented x 3. Well built woman, Patient is in no acute distress. HEENT: No icterus, no pallor, Throat and pharynx normal. Sinuses are non-tender. Neck: Supple and without lymphadenopathy or masses. No JVD. No Palpable supraclavicular lymph nodes. Lungs: Clear to auscultation. Bilateral symmetric air entry. No wheezing or rhonchi. Cardiovascular: Normal heart sounds, no murmurs.Regular rate and rhythm. Abdomen: soft, nontender, no hepatomegaly, no splenomegaly. Bowel sounds are normal. Neurological: No gross focal neurological deficit; Extremities: No finger clubbing, No cyanosis. No leg edema. Skin:: No skin rash. SPINE: No spinal or paraspinal tenderness. LABS: Blood workup done on 12/03/2022 at [facility]: -WBC 9000, H&H of 13.3/39.8, Platelet count 235,000. -BUN/Creat: 22/0.9. -normal liver function test. -CA 19-9 level --> 165 (12/23/2022). Blood workup done on 06/03/2023: - WBC 7400, H&H of 11.6/36.7, platelet count of 192,000 - BUN/Creat: 27/0.8, normal LFT, calcium 8.4 - CA 19-9 level --> 196 IMAGING: CT scan of chest, abdomen pelvis done on 02/23/2023: 1. Slight increase in size of a mass in the pancreatic body/tail with associated upstream main pancreatic duct dilatation and vascular case mint as described above. 2. Redemonstration of right hydroureteronephrosis to the level of a soft tissue density peritoneal nodule in the right hemipelvis, similar to the prior exam. 3. Redemonstration of a soft tissue density nodule abutting the dome of the urinary bladder, not significantly changed. 4. Scattered subcentimeter pulmonary nodules, not significantly changed. 5. Redemonstration of a multiple uterine masses, overall similar to the prior exam, indeterminate, possibly reflecting uterine fibroids. 6. Mildly enlarged aortocaval lymph node, not significantly changed. ASSESSMENT AND PLAN: 82-year-old female, a case of pancreatic body adenocarcinoma T4 primary tumor based on EUS checkup,has peritoneal metastatic disease, right adnexal soft tissue mass which is causing right hydronephrosis. Few lung nodules noted. Anterior mediastinal lymph node measuring 1.2 cm noted. -normal kidney function test noted, normal LFT. Earlier I saw her, we decided not to proceed with any kind of systemic treatment based on her request so currently she is not on specific treatment Follow-up CT scan of the chest, abdomen pelvis done on 02/23/2023, slight progression noted mainly in the enlargement pancreatic mass but otherwise stable lung nodules. She does not have any significant symptoms of underlying pancreatic cancer diagnosis, no abdominal pain, some intermittent mild diarrhea, she takes Imodium for the symptomatic treatment Currently she has not on specific treatment for the pancreatic cancer. Overall she has done well in the last 3 months, some mild diarrhea, she takes Imodium for the symptomatic treatment, weight is stable around 80 lb, no new GI symptoms. No bleeding from the sites. Will check CBCD, comprehensive metabolic panel, CA 19-9 to 9 today. Once again we talked about what to expect in the future about disease progression, she may have abdominal pain, fair appetite, some additional weight loss, declining performed status. She also had significant anxiety , advised to take Ativan on p.r.n. basis for the symptomatic treatment. Will observe I am planning to see her back in the clinic in about [address] Nestor Barnes Hem/Onc (This note was completed using the dictation program Fluency Direct. As such, there may be misspellings word substitutions, or other variations that should not change the essence of the clinical content of this encounter note. If there is need for further clarification, please direct questions to the provider listed above.) documented in this encounter Nursing Notes * Anahy Maxwell, MED ASSIST - 09/02/2023 3:41 PM EDT Patient identifed by name and birthdate Do you have any concerns about pain management for today's visit? Yes. Patient instructed to discuss pain concerns with provider during the visit today Living Will or Advance Directive for Health Care as noted on the problem list. [facility] is a way you can talk to your provider on line through e-mail. Would you like to sign up? I can activate it for you? ALREADY ACTIVE Filed Vitals: 09/02/23 1539 BP: 152/95 Pulse: 66 Resp: 16 Temp: 36.5 C (97.7 F) TempSrc: Tympanic SpO2: 97% Weight: 36.4 kg (80 lb 3.2 oz) Patient was instructed to not get up on the exam table/exam chair until directed and assisted by their provider; patient is to remain seated in the chair/ wheelchair/ exam table/ exam chair for fall prevention and safety reasons. Patient is aware to have assistance to step down off exam table/exam chair with personnel. Patient voiced full comprehension of instructions. Pt does not know what medications she is taking documented in this encounter Plan of Treatment Upcoming Encounters Date Type Department Care Team (Late st Contact Info) Description 11/16/2023 2:00 PM EDT Telemedicine Urology Carmela Gallegos [address] [place] [address] [place] [phone] Dominguez Carpio MD [address] [place] [address] [place] [id number], Telemed [facility] Urology Ex Rm [address] [facility] [place] [address] 12/17/2023 10:45 AM EDT Office Visit Hematology/Oncology [facility] [address] [place] [phone] Nestor Barnes MD [address] [facility] [place] [address] Pending Results Name Type Priority Associated Diagnoses Date /Time COMPREHENSIVE METABOLIC PANEL Lab STAT Malignant neoplasm of body of pancreas (HCC) 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) Lung nodules 09/02/2023 4:13 PM EDT CA 19-9 Lab Routine Malignant neoplasm of body of pancreas (HCC) 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) Lung nodules 09/02/2023 4:13 PM EDT Health Maintenance Due Date Last Done Comments Depression Screening 1952 Albumin/Creatinine Ratio 07/09/1957 Zoster Vaccines (1 of 2) 07/09/1958 DXA Scan 11/05/2012 11/05/2005, 10/18, 11/05/2005, Additional history exists Influenza Vaccine (FLU shot) (Season Ended) 2023 01/24/2020, 01/20/2019, 01/04/2018, Additional history exists GFR 06/03/2024 06/03/2023, 09/2022, 09/04/2022, Additional history exists Pneumococcal Vaccine: [...] Not on filedocumented as of this encounter Procedures Procedure Name Priority Date/Time Associated Diagnosis Comments DIFFERENTIAL, AUTOMATED STAT 09/02/2023 4:13 PM EDT Malignant neoplasm of body of pancreas (HCC) 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) Lung nodules CBC STAT 09/02/2023 4:13 PM EDT Malignant neoplasm of body of pancreas (HCC) 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) Lung nodules CBC STAT 09/02/2023 4:13 PM EDT Malignant neoplasm of body of pancreas (HCC) 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) Lung nodules documented in this encounter Results * DIFFERENTIAL, AUTOMATED (09/02/2023 4:13 PM EDT) WBC 8.02 4.00 - 10.80 K/uL 09/02/2023 4:22 PM EDT [facility] 56-02 Neutrophils % 71.6 40.0 - 75.0 % 09/02/2023 4:22 PM EDT [facility] 56-02 Lymphocytes % 19.1 18.0 - 42.0 % 09/02/2023 4:22 PM EDT [facility] 56- Monocytes % 8.0 1.0 - 11.0 % 09/02/2023 4:22 PM EDT [facility] 56- Eosinophils % 0.9 0.0 - 6.0 % 09/02/2023 4:22 PM EDT [facility] 56- Basophils % 0.4 0.0 - 2.0 % 09/02/2023 4:22 PM EDT [facility] 56- Absolute Neutrophils 5.75 1.80 - 7.70 K/uL 09/02/2023 4:22 PM EDT [facility] 56- Absolute Lymphocytes 1.53 1.00 - 4.80 K/ul 09/02/2023 4:22 PM EDT [facility] 56- Absolute Monocytes 0.64 0.00 - 1.10 K/uL 09/02/2023 4:22 PM EDT [facility] 56- Absolute Eosinophils 0.07 0.00 - 0.70 K/uL 09/02/2023 4:22 PM EDT [facility] 56 Absolute Basophils 0.03 0.00 - 0.20 K/uL 09/02/2023 4:22 PM EDT [facility] 56- Blood Venous blood specimen / Unknown Venipuncture / Unknown 09/02/2023 4:13 PM EDT 09/02/2023 4:13 PM EDT Nestor Barnes MD LAB BLOOD ORDERABLES [facility] [address] [place] [address] * CBC (09/02/2023 4:13 PM EDT) WBC 8.02 4.00 - 10.80 K/uL 09/02/2023 4:22 PM EDT [facility] 56- RBC 3.84 3.85 - 5.15 M/uL 09/02/2023 4:22 PM EDT [facility] 56- HGB 12.1 12.0 - 15.3 g/dL 09/02/2023 4:22 PM EDT [facility] 56- HCT 37.4 36.0 - 45.2 % 09/02/2023 4:22 PM EDT [facility] MCV 97.4 81.5 - 97.5 fL 09/02/2023 4:22 PM EDT [facility] 56 MCH 31.5 27.0 - 34.0 pg 09/02/2023 4:22 PM EDT [facility] 56 MCHC 32.4 32.0 - 36.0 g/dL 09/02/2023 4:22 PM EDT [place] [address] RDW 13.7 11.5 - 15.5 % 09/02/2023 4:22 PM EDT [facility] 56 PLT 187 140 - 400 K/uL 09/02/2023 4:22 PM EDT [address] MPV 11.0 6.6 - 11.1 fL 09/02/2023 4:22 PM EDT [facility] 56 Blood Venous blood specimen / Unknown Venipuncture / Unknown 09/02/2023 4:13 PM EDT 09/02/2023 4:13 PM EDT Nestor Barnes MD LAB BLOOD ORDERABLES [place] [address] [place], [place] [address] documented in this encounter Visit Diagnoses Diagnosis Malignant neoplasm of body of pancreas (HCC)- Primary Malignant neoplasm of body of pancreas 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
--- OUTSIDE RECORDS SUMMARY | 2023-09-25 16:35 | External Medical Summary ---
Author Name Unknown Address Unknown Organization [facility] [place] [address] Laboratory Report Ordering Provider Test Date Status JONATHAN ALLEN 09/02/2023 16:13:37 Final Observation Date Value Abnormality Reference (Units ) Status SYNC LEUKOCYTES IN BLOOD BY AUTOMATED COUNT 09/02/2023 16:13:37 8.02 4.00-10.80 (K/uL) Final Segs 09/02/2023 16:13:37 71.6 40.0-75.0 (%) Final Lymphs % 09/02/2023 16:13:37 19.1 18.0-42.0 (%) Final Monos 09/02/2023 16:13:37 8.0 1.0-11.0 (%) Final Eosinophils 09/02/2023 16:13:37 0.9 0.0-6.0 (%) Final Basos 09/02/2023 16:13:37 0.4 0.0-2.0 (%) Final Absolute Segs 09/02/2023 16:13:37 5.75 1.80-7.70 (K/uL) Final Lymphs, absolute 09/02/2023 16:13:37 1.53 1.00-4.80 (K/ul) Final Monos, Abs 09/02/2023 16:13:37 0.64 0.00-1.10 (K/uL) Final Eos, Abs 09/02/2023 16:13:37 0.07 0.00-0.70 (K/uL) Final Basos, Abs 09/02/2023 16:13:37 0.03 0.00-0.20 (K/uL) Final Performing Location [facility] [place] [address]
--- OUTSIDE RECORDS SUMMARY | 2023-09-25 16:35 | External Medical Summary ---
Author Name Unknown Address Unknown Organization [facility] [address] [place] [address] Laboratory Report Ordering Provider Test Date Status JONATHAN ALLEN 09/02/2023 16:13:37 Final Observation Date Value Abnormality Reference (Units ) Status Cancer Ag 19-9 09/02/2023 16:13:37 214.7 Above high norm al <35.0 (U/mL) Final Performing Location [facility] [address] [place] [address]
--- OUTSIDE RECORDS SUMMARY | 2023-09-25 16:35 | External Medical Summary | Continuity of Care Document ---
Author Name Unknown Organization [facility] [address] [place] [address] [address] [place] [phone] Care Team Providers Care Pbx Manager Name Role Phone Charly Lemus Primary Care Physician [phone] Encounter [facility] [id number] Date(s): 08/19/23 - 08/19/23 [facility] 0 [facility] 207 [facility] [address] [address] [phone] Encounter Diagnosis Head injury(Discharge Diagnosis) - 08/19/23 Pancreatic cancer(Discharge Diagnosis) - 08/19/23 Ambulatory dysfunction(Discharge Diagnosis) - 08/19/23 Discharge Disposition: Home or Self Care Attending Physician: MD Peter, Ernesto Parsons Allergies, Adverse Reactions, Alerts Substance Reaction Severity Status tetanus toxoid Rash Active Immunizations Given and Recorded Vaccine Date Status Refusal Reason RSV vaccine preF3, recombinant 05/18/23 Recorded influenza virus vaccine, inactivated 12/30/21 Give n influenza virus vaccine, inactivated 01/01/21 Give n influenza virus vaccine, inactivated 1 01/04/18 Re corded influenza virus vaccine, inactivated 2 01/13/17 Re corded influenza virus vaccine, inactivated 01/07/16 Give n influenza virus vaccine, inactivated 03/11/15 Give n influenza virus vaccine, inactivated 3 01/26/14 Re corded influenza virus vaccine, inactivated 4 02/04/13 Re corded influenza virus vaccine, inactivated 01/29/12 Give n SARS-CoV-2 mRNA (hrdkteqqnxm-uqml-bur) 5 08/26/21 Recorded SARS-CoV-2 (COVID-19) mRNA BNT-162b2 vax 6 02/13/21 Recorded SARS-CoV-2 (COVID-19) mRNA BNT-162b2 vax 7 06/14/20 Recorded SARS-CoV-2 (COVID-19) mRNA BNT-162b2 vax 8 05/24/20 Recorded pneumococcal 23-valent vaccine 11/14/18 Given pneumococcal 13-valent vaccine 08/06/14 Given yellow fever vaccine 9 04/19/09 Recorded yellow fever vaccine 10 01/08/04 Recorded poliovirus vaccine, inactivated 11 04/19/09 Record ed Telugu encephalitis virus vaccine 12 04/19/09 Re corded 1Result Comment: 2018-06-29: Historical information-source unspecified 2Result Comment: 2018-06-29: Historical information-source unspecified 3Result Comment: 2018-06-29: Historical information-source unspecified 4Result Comment: 2018-06-29: Historical information-source unspecified 5Result Comment: 2023-01-22: Historical information-source unspecified 6Result Comment: 2023-01-22: Historical information-source unspecified 7Result Comment: [facility] 2nd COVID shot 8Result Comment: 2023-01-22: Historical information-source unspecified 9Result Comment: 2018-06-29: Historical information-source unspecified 10Result Comment: 2018-06-29: Historical information-source unspecified 11Result Comment: 2018-06-29: Historical information-source unspecified 12Result Comment: 2018-06-29: Historical information-source unspecified Medications Caltrate 600 Plus oral tablet Start: 01/29/12 8:57:00, 1 tab, PO, Daily Start Date: 01/29/12 Status: Ordered carbidopa 25 mg oral tablet Start: 10/07/22 13:36:00 EDT, 1 tab, PO, qAM Start Date: 10/07/22 Status: Ordered carbidopa-levodopa 50 mg-200 mg oral tablet, extended release Start: 10/07/22 13:35:00 EDT, 2 tab, PO, qhs Start Date: 10/07/22 Status: Ordered Centrum Silver Women's oral tablet Start: 08/05/12 11:50:00, 1 tab, PO, Daily Start Date: 08/05/12 Status: Ordered Colace Start: 11/05/22 14:06:00 EDT, 100 mg =, PO Start Date: 11/05/22 Status: Ordered donepezil 10 mg oral tablet Start: 10/07/22 13:37:00 EDT, 1 tab, PO, Daily Start Date: 10/07/22 Status: Ordered lisinopril 5 mg oral tablet Start: 07/16/21 15:03:00 EDT, 1 tab, PO, Daily, Disp# 30 tab, Refills: 3, Note to Pharmacy: Note new dose (lower dose), Pharmacy: [id number] Start Date: 07/16/21 Stop Date: 11/13/21 Status: Ordered LORazepam 0.5 mg oral tablet Start: 08/02/23 20:07:00 EDT, 1 tab, PO, Daily, Disp# 30 tab, Refills: 0, PRN: as needed for anxiety, Pharmacy: [id number] Start Date: 08/02/23 Status: Ordered metoprolol succinate 25 mg oral tablet, extended release Start: 06/16/18 11:16:00 EST, 0.5 tab, PO, Daily Start Date: 06/16/18 Status: Ordered Myrbetriq 25 mg oral tablet, extended release Start: 03/26/23 16:45:00 EST, 1 tab, PO, q48h, Disp# 15 tab, Refills: 9, other Start Date: 03/26/23 Stop Date: 01/20/24 Status: Ordered sertraline 50 mg oral tablet Start: 10/07/22 14:08:00 EDT, 1 tab, PO, Daily, Disp# 90 tab, Refills: 3, Pharmacy: [id number] Start Date: 10/07/22 Stop Date: 10/02/23 Status: Ordered Vitamin D3 1000 intl units oral tablet Start: 03/19/15 13:49:00, 1 tab, PO, Daily Start Date: 03/19/15 Status: Ordered vitamin E Start: 07/14/13 10:40:00, 1 tab, PO, Daily, every other day Start Date: 07/14/13 Status: Ordered Voltaren 1% topical gel Start: 07/28/23 11:29:00 EDT, 1 appl, topical, qid, Disp# 100 g, PRN: Pain, Pharmacy: [id number] Start Date: 07/28/23 Status: Ordered Mental Status 08/19/23 Barriers to Learning one year None evide nt Mandatory Health Literacy Documentation Yes Health Literacy Communication Barriers N ever Primary Language Setswana Problem List Condition Confirmation Course Effective Dates Status Health St atus Informant Diarrhea Confirmed Active Scaphoid fracture Confirmed Active Hammer toe of left foot Confirmed Active HEMORRHOIDS Confirmed Active Hypertension Confirmed Active Impaired fasting glucose Confirmed Active Pancreatic cancer Confirmed Active Tinea unguium Confirmed Active Osteopenia Confirmed Active Knee pain Confirmed Active Left shoulder pain Confirmed Active Parkinson's disease Confirmed Active Ambulatory dysfunction Confirmed Active Diagnosis Diagnosis Type Effective Dates Health Status Clinical Service Informant Head injury Discharge Diagnosis 08/19/23 Pancreatic cancer Discharge Diagnosis 08/19/23 Ambulatory dysfunction Discharge Diagnosis 08/19/23 Procedures Procedure Date Related Diagnosis Body Site Status Pancreas 1 10/16/[address] of chest, abdomen and pelvis 2 10/08/22 Completed Plain X-ray of left hand 3 04/23/22 Completed Plain X-ray of left shoulder 4 04/23/22 Completed Audiometry 5 09/05/21 Completed Diagnostic mammogram 6 01/20/21 Co mpleted Bone density scan 7 01/06/21 Compl eted Mammogram of left breast 8 07/15/20 Completed Mammogram 9, 10 01/10/20 Completed Cataract extraction and inse rtion of intraocular lens 11 06/13/19 Completed Unilateral right diagnostic mammogram 12 05/11/19 Completed Papanicolaou smear taken 13 08/01/18 Completed Elbow X-ray 14 10/11/17 Completed X-ray of wrist- right 15 10/11/17 Completed Elbow Completed Foot Completed Surgery contraindicated 16 Completed 1pancreatic mass 2IMPRESSION 1. 2.3 x 4.4 x 3.7 cm [...] cannot beexcluded attention on follow-up is recommended. 3Impression: 1. Acute minimally displaced fracture of the fourth metacarpal. 2. Acute minimally displaced fracture within the base of the fifth metacarpal, likely with intra-articular extension. 3. Defined linear lucency of the scaphoid waist is suspicious for an additional acute fracture 4Impression: No evidence of acute osseous injury. 5Otoscopy: Right Clear canal, intact TM, Left Clear canal, intact TM. Tympanometry: Right Type B, Left Type B. Audiometric testing: Right Mild to Moderately-severe MHL. Left Mild to Moderately-severe SNHL. COMMERCIAL DECORATOR and SRT were in agreement. WRS was excellent in the right ear (100%) and excellent in the left ear (92%). Impressions: Todays results indicated a moderate, mostly sensorineural hearing loss with a 15 dBlow frequency, air-bone gaps at .25 and 5k Hz. Middle ear testing showed no compliance of the middle ear system for both ears. The results were reviewed with the patient. ENT evaluation to rule out middle ear pathology was suggested. Following medical clearance by ENT a hearing aid evaluation will be completed. 61. Stable 2.4 mm grouping of reticular calcifications in the medial, posterior left breast, unchanged dating back to at least December 2019, therefore likely benign. Another 12-month follow-up left diagnostic mammogram including spot magnification views is recommended to ensure longer stability. 2. Stable mammographic appearance of the right breast including postoperative findings. No mammographic evidence of malignancy in the right breast. 3. An 11 x 7 mm asymmetry in the lateral left breast effaces with supplemental spot compression tomosynthesis imaging, and no suspicious sonographic correlate identified. This most likely representednormal overlapping fibroglandular tissue and is considered benign. Recommend bilateral diagnostic mammography and possible left breast ultrasound in 1 year. 7AP Spine T-score: -1.6, BMD: 1.017 DualFemur T-score: -2.2, BMD: 0.736 81. Stable small grouping of reticular microcalcifications in the medial, far posterior left breast,best seen on the CC full-field and spot magnification views for which another 6-month close follow-up left diagnostic mammogram including spot magnification views is recommended to ensure longer stability. Increasingly conspicuous groupings of faint punctate and amorphous microcalcifications in thelateral left breast for which a 6-month follow-up spot magnification view is also recommended. 2. Annual right mammography will also be due at the time of next follow-up. 9Left breast stereotactic guided biopsy is recommended for a new 3 mm cluster of somewhat reticular calcifications in the medial, far posterior breast. 10There is no mammographic evidence of malignancy. A 1 year screening mammogram is recommended. 11Left cataract - Abhay Payne MD 12Expected postsurgical changes in the right breast status post surgical excision for LCIS, without mammographic evidence of malignancy in the right breast. Return to annual mammogram screening schedule is recommended. 13Negative for intraepithelial lesion or malignancy. 14Complete dislocation of the elbow with small fracture fragments. The origin of theese fracture fragments is difficult to assess. This be better characterized on CT. 15Distal right radius fracture as described above. 16elbow Vital Signs Most recent to oldest [Reference Range]: 1 Patient Weight 36.2 kg (08/19/23 2:13 PM) Heart Rate 71 bpm (08/19/23 2:13 PM) Respiratory Rate 19 br/min (08/19/23 2:13 PM) Blood Pressure 140/78mmHg (08/19/23 2:13 PM) Cuff Pulse Pressure 62 mmHg (08/19/23 2:13 PM) Social History Social History Type Response Smoking Status Never smoked cigaret beck Sex Female Patient Care team information Care Team Personnel Name: DO Lemus Franklin J Position: Physician - Family Med Member Role: Primary Care Provider Address: Address: [address] [place] [address] [place] Care Team Related Persons Name: BILL CAMPOS
--- OUTSIDE RECORDS SUMMARY | 2023-09-25 16:35 | External Medical Summary | Summary of Care ---
Author Name Unknown Organization [facility] Address [address] [place] [address] Phone [phone] Care Team Providers Care Double Cut Sawyer Name Role Phone Charly Lemus Primary Care Provider Reason for Visit * Reason Comments eRx-Medication Refill Encounter Details Date Type Department Care Team (Late st Contact Info) Description 08/18/2023 Refill Urology, [facility] [address] [facility] [place] [address] Da Cordova MD [address] [facility] [address] [facility] [place] [address] Allergies Active Allergy Reactions Criticality Noted Date Comments Pollen 06/21/2017 Tetanus Toxoid 10/20/1999 LOCAL REACTION ONLY documented as of this encounter (statuses as of 08/18/2023) Medications Medication Sig Dispensed Refills Start Date End Date Status VITAMIN E CAPS 400 IU OR Take 1 Capsule by mouth in the morning. 0 Active CALTRATE 600 TABS 1500 MG OR 1 PILL DAILY 0 Active VITAMIN D 1000 UNITS PO TABS Take by mouth. 0 Active MULTIVITAL PO TABS Take by mouth. Pt takes this in a gummy form 0 Active Carbidopa-Levodo pa 25-100 MG Oral Tablet Take by mouth 2 times a day. Takes the 25-100- twice a day, than takes 50-200( takes 2 tablets in the evening) 225 Tablet 5 08/11/2021 Active LORazepam 0.5 MG Oral Tablet (Ativan) Take 1 Tablet by mouth as needed for Anxiety. 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 30 Tablet 2 12/18/2022 Active Additional Information Patient not taking.Reported on 06/03/2023 Metoprolol Succinate ER 25 MG Oral Tablet Extended Release 24 Hour (toPROL XL)Indications:H TN, goal below 140/90 TAKE 1/2 TABLET BY MOUTH EVERY DAY 45 Tablet 3 03/10/2023 Active Lisinopril 5 MG Oral Tablet (Prinivil)Indica tions:HTN, goal below 140/90 TAKE 1 TABLET BY MOUTH EVERY MORNING 90 Tablet 1 04/28/2023 Active Myrbetriq 25 MG Oral Tablet Extended Release 24 Hour (Mirabegron ER) TAKE 1 TABLET BY MOUTH EVERY MORNING 30 Tablet 4 08/18/2023 Active Mirabegron ER 25 MG Oral Tablet Extended Release 24 Hour (Myrbetriq) Take 1 Tablet by mouth in the morning. 30 Tablet 4 12/23/2022 4 Discontinued documented as of this encounter (statuses as of 08/18/2023) Active Problems Problem Noted Date Diagnosed Date [...] as of this encounter (statuses as of 08/18/2023) Resolved Problems Problem Noted Date Diagnosed Date Resolved Date HYPERTENSION NOS 03/07/2009 Overview: Modified per HTN protocol #16. Other acute otitis externa 0 06/14/2008 Overview: Resolved per Benign Acute Dxs Protocol #3 documented as of this encounter (statuses as of 08/18/2023) Immunizations Name Administration Dates Next Due COVID-19 mRNA, LNP-s, No Pre serve, 2-Dose Series ([employer]) 02/13/2021,06/14/2020,05/24/2020 COVID-19, LNP-s, No Preserve , Christopher-sucrose, [...] encounter Miscellaneous Notes * Telephone Encounter - Da Cordova MD - 08/18/2023 1:06 PM EDTSigned Prescriptions: Disp Refills Myrbetriq 25 MG Oral Tablet Extended Relea*30 Tab*4 Sig: TAKE 1 TABLET BY MOUTH EVERY MORNING Authorizing Provider: DA CORDOVA * Telephone Encounter - Da Cordova MD - 08/18/2023 1:06 PM EDT Patient needs follow-up visit for refills. Telehealth will suffice. Thanks, * Telephone Encounter - Laura Rosen LPN - 08/18/2023 9:22 AM EDTPending Prescriptions: Disp Refills Myrbetriq 25 MG Oral Tablet Extended Relea*30 Tab*4 Sig: TAKE 1 TABLET BY MOUTH EVERY MORNING * Telephone Encounter - Laura Rosen LPN - 08/18/2023 9:22 AM EDT Please refill the requested medication(s). Valerie 03/02/2023 (in office), Visit date not found (telemedicine) Visit date not found Review of patient's allergies indicates: Allergen Reactions Pollen Tetanus Toxoid LOCAL REACTION ONLY documented in this encounter Plan of Treatment Upcoming Encounters Date Type Department Care Team (Late st Contact Info) Description 09/02/2023 3:15 PM EDT Office Visit Hematology/Oncology [facility] [address] [place] [phone] Nestor Barnes MD [address] [facility] [address] Health Maintenance Due Date Last Done Comments [...] Documents on File Type Date Recorded Patient Sales Representative Trainee Expl anation POLST 06/17/2023 10:09 AM POLST (Luba rae DNR) Care Teams Double Cut Sawyer Relationship Specialty Start Date End Date Charly Lemus DO [address], [place] [address] PCP - General Family Medicine 03/16/16 documented as of this encounter
[2023-09-25] MEDS: OPTIRAY 320 100ml IV ONE (16:57)
--- NOTE | 2023-09-25 20:09 | CT Scan Report ---
CT SCAN OF THE ABDOMEN COMBO PANCREAS PROTOCOL CLINICAL HISTORY: Pancreatic cancer. COMPARISON STUDY: Abdominal CT performed earlier the same day 09/25/2023. Abdominal CT dated 12/17/2022 . TECHNIQUE: Before and following the IV administration of 94 cc of Optiray 320, CT scan of the abdome n is performed from the lung bases to the pelvic inlet using the pancreas protocol. Images are review ed in the axial, sagittal, and coronal planes. IV contrast was administered without complication. A d ose lowering technique was utilized adhering to the principles of ALARA. The examination is degraded by anasarca cachexia. CT DOSE: 410.88 mGy.cm FINDINGS: Lung bases: The heart is enlarged and without pericardial effusion. There are small pleural effusions with dependent atelectasis. A 6 mm nodule is seen in the lingula on image #9. A 3 mm pulmonary nodul e in the left lower lobe as seen on image #18 and a 3 mm right middle lobe pulmonary nodule is seen o n image #5. Liver: The contrast-enhanced liver is normal in size, contour, and attenuation. There is no intrahepa tic biliary ductal dilatation. There are 2 right lobe hepatic hemangiomas which measure up to 2.0 cm. A left lobe hepatic cyst measures 1.8 cm. Additional subcentimeter hepatic hypodensities also likely represent cysts but are too small for definitive characterization. Hepatic and portal vasculature: Hepatic arterial anatomy is conventional. There is ectasia of the dis jarrett celiac artery which measures up to 6 mm. The main portal vein and intrahepatic portal veins are p atent. 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 The splenic vein is thrombosed near the portal splenic confluence with large perisplen ic collaterals. Gallbladder: Unremarkable. Spleen: Normal in size and attenuation. Scattered subcentimeter splenic hypodensities are indetermina nt. Pancreas: There is a large infiltrative low-attenuation mass lesion centered in the body of the pancr eas on axial image #95. This measures approximately 4.5 x 4.5 x 4.5 cm in aggregate dimension. The di stal pancreas is atrophic with marked dilatation of the distal pancreatic duct. The lesion encases an d focally occludes the splenic artery. The lesion encases and occludes the portal splenic confluence. Adrenal glands: Unremarkable. Kidneys: There is asymmetric cortical atrophy of the right kidney and severe right-sided hydrouretero nephrosis. The left kidney is normal in size and without hydronephrosis. There is heterogeneously dim inished enhancement of the right kidney as compared to the left. Abdominal vasculature: The abdominal aorta is normal in course and caliber noting mild to moderate at herosclerotic calcification. Bowel: Imaged portions of the bowel show no evidence of obstruction. Moderate fecal retention is seen throughout the imaged colon. The distal stomach appears thick-walled and edematous. Peritoneum: There is no intraperitoneal free air or abdominal ascites. There is diffuse mesenteric ed akua. Lymphadenopathy: None. Skeletal structures: The skeletal structures are heterogeneously osteopenic. There is advanced and th e sacral spondylosis as well as mild scoliosis. No lytic or blastic lesions are seen. Soft tissues: The patient is cachectic and there is anasarca of the body wall. IMPRESSION: 1. The examination is degraded by patient cachexia and diffuse anasarca. 2. There is a large infiltrative low-attenuation mass centered in the body of the pancreas as detaile d above. A pancreatic adenocarcinomas the diagnosis of exclusion. 3. The mass lesion encases and focally occludes the splenic artery. This also encases and occludes th e portal splenic confluence, with upper abdominal collaterals as above. 4. There is no definite evidence of intra-abdominal metastatic disease. 5. There is severe right hydroureteronephrosis with asymmetric cortical atrophy and diminished enhanc ement of the right kidney as compared to the left. This is likely secondary to a right pelvic mass [place] when correlated with the 12/17/2022 examination. 6. Cardiomegaly and small pleural effusions. 7. Subcentimeter pulmonary nodules are seen at both lung bases. These are pathologically indeterminan t and similar to the 12/17/2022 examination. Continued attention at follow-up is recommended. 8. Additional findings as above. ACT 112: Negative or not required by law. Electronically signed by: Tank De La Paz M.D. 09/25/2023 8:07 PM
[2023-09-25] MEDS: CARBIDOPA/LEVODOPA 50/200MG EXT REL TAB PO SCH (20:40)
[2023-09-26 07:15] LABS: Hematocrit (blood only) 36.7 % (37.0-47.0); Mean Corpuscular Hemoglobin 30.4 pg (25.0-34.0); Mean Corpuscular Hgb Conc 32.7 g/dL (32.0-36.0); Mean Corpuscular Volume 92.9 fL (80.0-100.0); Mean Platelet Volume 10.1 fL (9.4-12.4); Platelet Count 217 K/uL (130-400); RDW Standard Deviation 44.2 fL (36.4-46.3); Red Blood Count 3.95 M/uL (4.20-5.40)
[2023-09-26 07:35] LABS: BUN Creatinine Ratio 23.1 (10-20); Calcium 8.1 mg/dl (8.6-10.3); Creatinine Clr Calc Pharmacy 40.5 ml/min; Est GFR (African American) 80.9 ml/min; Est GFR (Non-African American) 69.8 ml/min; Potassium 3.7 mmol/L (3.5-5.1)
[2023-09-26] MEDS: DOCUSATE SODIUM 100 MG CAP PO SCH (11:28)
[2023-09-26] MEDS: hydrALAZINE 10 MG TAB PO SCH (11:29)
--- NOTE | 2023-09-26 16:02 | Hospitalist Progress Note ---
Date of Service September 26, 2023 Assessment & Plan (1) Fall: Plan: Apparently she has had frequent falls at home. Fortunately the head CT scan reveals only age-related changes and all x-rays are negative for fracture. It appears she will need placement. OT and PT assessments are pending. (2) Elevated creatine kinase: Plan: Mild rhabdomyolysis present on admission. CK has improved to 657. Continue IV fluids for now. Daily lab . Fortunately, renal function is stable (3) Elevated troponin: Plan: No acute EKG changes. No chest pain. No evidence of acute coronary syndrome (4) Pancreatic mass: Plan: CT scan findings highly suspicious for malignancy. The patient states her primary care physician is aware and monitoring this. 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 Appetite is poor. (6) Dementia: Plan: Stable. Continue supportive care and current medical management Plan It appears she will need placement. OT and PT assessments are pending. Admission and Anticipated Discharge Date Admission Date: September 26, 2023 Subjective Alert and oriented. It appears she will need placement. OT and PT assessments are pending. She is admitted from observation status. Lisinopril was discontinued and hydralazine started for better blood pressure control. Admission abdominal CT scan reveals a pancreatic mass highly suspicious for malignancy and severe right-sided hydronephrosis. She tells me that her primary care doctor is aware of this but I do not know that for sure. Potassium has improved to 3.7. CK is down to 657. On admission, bilateral elbow x-rays were negative for fracture and head CT scan revealed only age-related changes. Review of Systems 2 Review of Systems: Constitutional-no fever or chills ENT-no blurred vision, no double vision, no epistaxis, no sore throat Respiratory-no cough, no wheezing, no shortness of breath Cardiac-no palpitations, no chest pain, no syncope GI-no nausea, vomiting, diarrhea, melena, hematochezia -no urinary retention, no urinary incontinence, no dysuria, no hematuria Musculoskeletal-bilateral elbow discomfort from falling at home. Skin-no bruising, no rashes, no pruritus Neuro-generalized weakness consistent with age. No focal deficits. Psych-no depression, no anxiety Physical Exam 2 Physical Exam: General-alert and oriented x1, no fever, no chills HEENT-head atraumatic and normocephalic, pupils equal and reactive to light, extraocular muscles intact Neck-no lymphadenopathy or thyromegaly, trachea midline Chest-clear to auscultation. No rales, wheezing or rhonchi Cardiac-regular rate and rhythm, normal S1 and S2 Abdomen-normal bowel sounds, no hepatosplenomegaly Extremities-no cyanosis, clubbing, or edema Neuro-cranial nerves II through XII intact, motor and sensory function within normal limits, strength symmetrical with generalized weakness consistent with age, no focal deficits Psych-normal affect, normal mood. Oriented to name only however Results & Data Results & Data Vital Signs (Past 12 Hours) Vital Signs Temp Pulse Pulse Resp BP Pulse Ox O2 Del Method 09/26/23 15:34 36.7 C 66 18 156/72 H 95 Room Air 09/26/23 11:30 36.6 C 67 18 165/121 H 97 Room Air 09/26/23 07:40 36.7 C 67 18 183/78 H 96 Room Air 09/26/23 07:28 69 Laboratory Results 09/26/23 06:57 09/26/23 06:57 PG Care Time/CCT Total # of Minutes Spent Total Time Spent with Patient: Total time spent is greater than 50% in coordination of care (as documented) at patient's floor/unit and/or counseling patient: Coding Level of Care Code 02908 SUB INP/OBS CARE 3/50MIN Diagnoses Fall W19.XXXA Elevated creatine kinase R74.8 Elevated troponin R79.89 Pancreatic mass K86.89 Cachexia R64 Dementia F03.90
[2023-09-26] MEDS: MELATONIN 3 MG TAB PO PRN (19:41)
[2023-09-26] MEDS: LORazepam 0.5 MG TAB PO PRN (20:15)
[2023-09-27 07:53] LABS: Basophils # (auto) 0.02 K/uL (0.00-0.20); Basophils % (auto) 0.3 %; Eosinophils # (auto) 0.04 K/uL (0.00-0.50); Eosinophils % (auto) 0.7 %; Hematocrit (blood only) 32.6 % (37.0-47.0); Immature Granulocytes # (auto) 0.03 K/uL (0.01-0.20); Immature Granulocytes % (auto) 0.5 %; Lymphocytes # (auto) 1.12 K/uL (1.20-3.40); Lymphocytes % (auto) 19.3 %; Mean Corpuscular Hemoglobin 30.9 pg (25.0-34.0); Mean Corpuscular Hgb Conc 33.7 g/dL (32.0-36.0); Mean Corpuscular Volume 91.6 fL (80.0-100.0); Mean Platelet Volume 10.3 fL (9.4-12.4); Monocytes # (auto) 0.43 K/uL (0.11-0.59); Monocytes % (auto) 7.4 %; Neutrophils # (auto) 4.15 K/uL (1.40-6.50); Neutrophils % (auto) 71.8 %; Platelet Count 225 K/uL (130-400); RDW Coefficient of Variation 12.9 % (11.5-14.5); RDW Standard Deviation 43.2 fL (36.4-46.3); Red Blood Count 3.56 M/uL (4.20-5.40); White Blood Count 5.79 K/ul (4.8-10.8)
[2023-09-27 08:15] LABS: BUN Creatinine Ratio 24.7 (10-20); Calcium 8.2 mg/dl (8.6-10.3); Creatinine Clr Calc Pharmacy 35.5 ml/min; Est GFR (Non-African American) 59.5 ml/min; Potassium 3.6 mmol/L (3.5-5.1)
--- NOTE | 2023-09-27 12:52 | Hospitalist Progress Note ---
Date of Service September 27, 2023 Assessment & Plan (1) Fall: Plan: Apparently she has had frequent falls at home. Fortunately the head CT scan reveals only age-related changes and all x-rays are negative for fracture. Arrangements are being finalized for placement at the [facility]. (2) Elevated creatine kinase: Plan: Mild rhabdomyolysis present on admission. CK has now normalized. IV fluids have been discontinued. Daily lab . Fortunately, renal function is stable (3) Elevated troponin: Plan: No acute EKG changes. No chest pain. No evidence of acute coronary syndrome (4) Pancreatic mass: Plan: CT scan findings highly suspicious for malignancy. The daughter states that she is aware of this. 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 Appetite is poor. (6) Dementia: Plan: Stable. Continue supportive care and current medical management Plan Discharge to the [facility] when arrangements are finalized. She is medically stable Admission and Anticipated Discharge Date Admission Date: September 26, 2023 Subjective Alert and pleasant. No acute problems. I spoke to her daughter, Garima, by phone. They are aware of the pancreatic mass which is most likely malignant. CK has normalized at 139. Potassium corrected to 3.6. Hydralazine has been further uptitrated today, September 26, for better blood pressure control. More than likely she will go to the [facility] when arrangements are finalized. Hopefully tomorrow, September 27 Review of Systems 2 Review of Systems: Constitutional-no fever or chills ENT-no blurred vision, no double vision, no epistaxis, no sore throat Respiratory-no cough, no wheezing, no shortness of breath Cardiac-no palpitations, no chest pain, no syncope GI-no nausea, vomiting, diarrhea, melena, hematochezia -no urinary retention, no urinary incontinence, no dysuria, no hematuria Musculoskeletal-bilateral elbow discomfort from falling at home. Skin-no bruising, no rashes, no pruritus Neuro-generalized weakness consistent with age. No focal deficits. Psych-no depression, no anxiety Physical Exam 2 Physical Exam: General-alert and oriented x1, no fever, no chills HEENT-head atraumatic and normocephalic, pupils equal and reactive to light, extraocular muscles intact Neck-no lymphadenopathy or thyromegaly, trachea midline Chest-clear to auscultation. No rales, wheezing or rhonchi Cardiac-regular rate and rhythm, normal S1 and S2 Abdomen-normal bowel sounds, no hepatosplenomegaly Extremities-no cyanosis, clubbing, or edema Neuro-cranial nerves II through XII intact, motor and sensory function within normal limits, strength symmetrical with generalized weakness consistent with age, no focal deficits Psych-normal affect, normal mood. Oriented to name only however Results & Data Results & Data Vital Signs (Past 12 Hours) Vital Signs Temp Pulse Pulse Resp BP BP Pulse Ox 09/27/23 11:34 36.4 C L 73 17 128/64 96 09/27/23 07:46 36.6 C 79 17 175/87 H 96 09/27/23 03:27 36.4 C L 67 14 152/74 H 94 09/27/23 02:13 63 O2 Del Method 09/27/23 11:34 Room Air 09/27/23 07:46 Room Air 09/27/23 03:27 Room Air 09/27/23 02:13 Laboratory Results 09/27/23 07:12 09/27/23 07:12 PG Care Time/CCT Total # of Minutes Spent Total Time Spent with Patient: Total time spent is greater than 50% in coordination of care (as documented) at patient's floor/unit and/or counseling patient: Coding Level of Care Code 51129 SUB INP/OBS CARE 3/50MIN Diagnoses Fall W19.XXXA Elevated creatine kinase R74.8 Elevated troponin R79.89 Pancreatic mass K86.89 Cachexia R64 Dementia F03.90
[2023-09-27] MEDS: hydrALAZINE HCL 25 MG TAB PO SCH (14:13)
[2023-09-28 06:21] LABS: Basophils # (auto) 0.02 K/uL (0.00-0.20); Basophils % (auto) 0.2 %; Eosinophils # (auto) 0.06 K/uL (0.00-0.50); Eosinophils % (auto) 0.7 %; Hematocrit (blood only) 33.8 % (37.0-47.0); Hemoglobin 11.2 g/dl (12.0-16.0); Immature Granulocytes # (auto) 0.03 K/uL (0.01-0.20); Immature Granulocytes % (auto) 0.4 %; Lymphocytes # (auto) 1.15 K/uL (1.20-3.40); Lymphocytes % (auto) 13.7 %; Mean Corpuscular Hemoglobin 30.5 pg (25.0-34.0); Mean Corpuscular Hgb Conc 33.1 g/dL (32.0-36.0); Mean Corpuscular Volume 92.1 fL (80.0-100.0); Mean Platelet Volume 10.2 fL (9.4-12.4); Monocytes # (auto) 0.46 K/uL (0.11-0.59); Monocytes % (auto) 5.5 %; Neutrophils # (auto) 6.68 K/uL (1.40-6.50); Neutrophils % (auto) 79.5 %; Platelet Count 242 K/uL (130-400); RDW Coefficient of Variation 12.8 % (11.5-14.5); RDW Standard Deviation 43.4 fL (36.4-46.3); Red Blood Count 3.67 M/uL (4.20-5.40)
[2023-09-28 06:32] LABS: BUN Creatinine Ratio 25.6 (10-20); Calcium 8.2 mg/dl (8.6-10.3); Creatinine Clr Calc Pharmacy 35.1 ml/min; Est GFR (African American) 68.1 ml/min; Est GFR (Non-African American) 58.7 ml/min; Potassium 3.5 mmol/L (3.5-5.1)
[2023-09-28] MEDS: POTASSIUM CHLORIDE 10 MEQ TABCR PO SCH (11:43)
--- NOTE | 2023-09-28 14:00 | Hospitalist Progress Note ---
Date of Service September 28, 2023 Assessment & Plan (1) Fall: Plan: Apparently she has had frequent falls at home. Fortunately the head CT scan reveals only age-related changes and all x-rays are negative for fracture. Arrangements are being finalized for placement at the [facility]. (2) Elevated creatine kinase: Plan: Mild rhabdomyolysis present on admission. CK has now normalized. IV fluids have been discontinued. Daily lab . Fortunately, renal function is stable (3) Elevated troponin: Plan: No acute EKG changes. No chest pain. No evidence of acute coronary syndrome (4) Pancreatic mass: Plan: CT scan findings highly suspicious for malignancy. The daughter states that she is aware of this. 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 Appetite is poor. (6) Dementia: Plan: Stable. Continue supportive care and current medical management (7) Hypokalemia: Plan: Oral replacement therapy. Serial labs Plan Discharge to the [facility] when arrangements are finalized. She is medically stable Admission and Anticipated Discharge Date Admission Date: September 26, 2023 Subjective Alert. No new problems. She has been started on an oral potassium replacement daily. CK is now normal. Blood pressure has improved considerably with addition of hydralazine which replaces lisinopril. She will be discharged to the [facility] when final approval has been obtained. Review of Systems 2 Review of Systems: Constitutional-no fever or chills ENT-no blurred vision, no double vision, no epistaxis, no sore throat Respiratory-no cough, no wheezing, no shortness of breath Cardiac-no palpitations, no chest pain, no syncope GI-no nausea, vomiting, diarrhea, melena, hematochezia -no urinary retention, no urinary incontinence, no dysuria, no hematuria Musculoskeletal-bilateral elbow discomfort from falling at home. Skin-no bruising, no rashes, no pruritus Neuro-generalized weakness consistent with age. No focal deficits. Psych-no depression, no anxiety Physical Exam 2 Physical Exam: General-alert and oriented x1, no fever, no chills HEENT-head atraumatic and normocephalic, pupils equal and reactive to light, extraocular muscles intact Neck-no lymphadenopathy or thyromegaly, trachea midline Chest-clear to auscultation. No rales, wheezing or rhonchi Cardiac-regular rate and rhythm, normal S1 and S2 Abdomen-normal bowel sounds, no hepatosplenomegaly Extremities-no cyanosis, clubbing, or edema Neuro-cranial nerves II through XII intact, motor and sensory function within normal limits, strength symmetrical with generalized weakness consistent with age, no focal deficits Psych-normal affect, normal mood. Oriented to name only however Results & Data Results & Data Vital Signs (Past 12 Hours) Vital Signs Temp Pulse Pulse Resp BP Pulse Ox O2 Del Method 09/28/23 11:51 36.7 C 68 17 111/64 95 Room Air 09/28/23 07:39 36.8 C 75 17 162/44 H 96 Room Air 09/28/23 07:31 66 09/28/23 03:20 36.7 C 68 18 118/61 97 Room Air Laboratory Results 09/28/23 05:33 09/28/23 05:33 PG Care Time/CCT Total # of Minutes Spent Total Time Spent with Patient: Total time spent is greater than 50% in coordination of care (as documented) at patient's floor/unit and/or counseling patient: Coding Level of Care Code 50025 SUB INP/OBS CARE 3/50MIN Diagnoses Fall W19.XXXA Elevated creatine kinase R74.8 Elevated troponin R79.89 Pancreatic mass K86.89 Cachexia R64 Dementia F03.90 Hypokalemia E87.6
[2023-09-28] MEDS: hydrALAZINE 10 MG TAB PO SCH (17:13)
[2023-09-29 06:44] LABS: Basophils # (auto) 0.04 K/uL (0.00-0.20); Basophils % (auto) 0.3 %; Eosinophils # (auto) 0.11 K/uL (0.00-0.50); Eosinophils % (auto) 0.8 %; Hematocrit (blood only) 33.3 % (37.0-47.0); Hemoglobin 11.2 g/dl (12.0-16.0); Immature Granulocytes # (auto) 0.06 K/uL (0.01-0.20); Immature Granulocytes % (auto) 0.5 %; Lymphocytes # (auto) 1.09 K/uL (1.20-3.40); Lymphocytes % (auto) 8.2 %; Mean Corpuscular Hemoglobin 31.2 pg (25.0-34.0); Mean Corpuscular Hgb Conc 33.6 g/dL (32.0-36.0); Mean Corpuscular Volume 92.8 fL (80.0-100.0); Mean Platelet Volume 10.5 fL (9.4-12.4); Monocytes # (auto) 0.64 K/uL (0.11-0.59); Monocytes % (auto) 4.8 %; Neutrophils # (auto) 11.28 K/uL (1.40-6.50); Neutrophils % (auto) 85.4 %; Platelet Count 227 K/uL (130-400); RDW Coefficient of Variation 13.2 % (11.5-14.5); RDW Standard Deviation 44.7 fL (36.4-46.3); Red Blood Count 3.59 M/uL (4.20-5.40); White Blood Count 13.22 K/ul (4.8-10.8)
[2023-09-29 06:54] LABS: BUN Creatinine Ratio 29.2 (10-20); Calcium 8.3 mg/dl (8.6-10.3); Creatinine Clr Calc Pharmacy 35.5 ml/min; Est GFR (Non-African American) 59.5 ml/min; Potassium 3.9 mmol/L (3.5-5.1)
--- NOTE | 2023-09-29 10:43 | Discharge Summary ---
Date of Service September 29, 2023 Admission HPI Per Admitting Provider Padmini Brothers is an 83yo female presenting from [place] after an unwitnessed fall. Patient with history of dementia, unable to provide details of events prior to arrival. Patient apparently hit her life alert button due to weakness. She had an unwitnessed fall and was brought to the ER. Mild elevation of CK and Troponin Patient offers no complaints during exam Principal Diagnosis Mechanical fall, mild rhabdomyolysis, elevated troponin without acute coronary syndrome, uncontrolled hypertension, hypokalemia, cachexia due to pancreatic cancer Discharge Exam General-alert and oriented x1, no fever, no chills. Cachectic HEENT-head atraumatic and normocephalic, pupils equal and reactive to light, extraocular muscles intact Neck-no lymphadenopathy or thyromegaly, trachea midline Chest-clear to auscultation. No rales, wheezing or rhonchi Cardiac-regular rate and rhythm, normal S1 and S2 Abdomen-normal bowel sounds, no hepatosplenomegaly Extremities-no cyanosis, clubbing, or edema Neuro-cranial nerves II through XII intact, motor and sensory function within normal limits, strength symmetrical with generalized weakness consistent with age, no focal deficits Psych-normal affect, normal mood. Oriented to name only however Discharge Data Allergies Allergy/AdvReac Type Severity Reaction Status Date / Time No Known Drug Allergies Allergy Unknown Verified 09/25/23 02:50 Consultations 09/25/23 03:54 ED Decision to Admit Stat Ordered Studies 09/25/23 01:16 CT abd pelvis wo con Stat CT head/brain wo con Stat 09/25/23 16:19 CT pancreas 3-phase wo/w con Routine Hospital Course (1) Fall: Apparently she has had frequent falls at home. Fortunately the head CT scan reveals only age-related changes and all x-rays are negative for fracture. Arrangements are being finalized for placement at the [facility]. (2) Elevated creatine kinase: Mild rhabdomyolysis present on admission. CK has now normalized. IV fluids have been discontinued. Daily lab . Fortunately, renal function is stable (3) Elevated troponin: No acute EKG changes. No chest pain. No evidence of acute coronary syndrome (4) Pancreatic mass: CT scan findings highly suspicious for malignancy. The daughter states that she is aware of this. Due to her advanced age, she is not a candidate for biopsy or chemotherapy (5) Cachexia: Due to suspected pancreatic malignancy. Appetite is poor. (6) Dementia: Stable. Continue supportive care and current medical management (7) Hypokalemia: Corrected with oral replacement therapy. Serial labs Plan Discharge to the [facility] today, September 28 Total Time Total Time Spent Total Time Spent (In Minutes): 45 minutes Discharge Plan Discharge Items Patient Disposition: Transfer [facility] Fac Reason For Visit: FALL, MILDLY ELEVATED CK Discharge Diagnosis: Mechanical fall, mild rhabdomyolysis, uncontrolled hypertension, hypokalemia, elevated troponin without acute coronary syndrome Activity: Resume your previous activity Non-emergency contact: Primary Care Provider Call non-emergency contact if: your symptoms worsen Follow-up/Referrals: Charly Lemus DO [Primary Care Provider] - Diet: Regular Addtl Attending Provider Instructions: Take Metamucil twice daily to help with diarrhea. Lisinopril has been switched to hydralazine for blood pressure control Pending Studies at Discharge: No Stand-Alone Forms: My [employer] Skilled Items Patient informed of condition?: Yes DNR: Yes Discharge Level of Care: Skilled Communicable Disease: No Discharge Prognosis: Stable Lines: None Urinary Catheter: No Medications and DC Order Prescriptions: New hydralazine 10 mg Tablet 10 mg PO TID Qty: 100 0RF potassium chloride 10 mEq Tablet,Er Particles/Crystals 10 meq PO DAILY Qty: 30 0RF Psyllium Or Guar Gum Fiber Sup [Metamucil Or Nutrisource Fiber Supplement] 4 g PO BID Qty: 120 0RF Continued carbidopa-levodopa [Sinemet] 25-100 mg Tablet 2.5 tab PO BID Calcium 600 + D(3) 600 mg calcium- 200 unit Capsule 1 cap PO 3XWK Rx Instructions: M,W,F...morning metoprolol succinate 25 mg Capsule,Sprinkle,Er 24hr 12.5 mg PO QAM carbidopa-levodopa 50-200 mg Tablet Extended Release 2 tab PO QPM carbidopa 25 mg Tablet 25 mg PO QAM lorazepam [Ativan] 0.5 mg Tablet 0.5 mg PO DAILY PRN (Reason: Anxiety) docusate sodium [Colace] 100 mg Capsule 100 mg PO Q OTHER DAY sertraline [Zoloft] 50 mg Tablet 50 mg PO QAM donepezil 10 mg tablet 10 mg PO DAILY mirabegron 25 mg tablet extended release 24 hr 25 mg PO Q OTHER DAY Rx Instructions: takes at bedtime multivit with min-folic acid [Womens Daily Gummies] 200 mcg Tablet,Chewable 1 tab PO DAILY melatonin 3 mg Tablet 3 mg PO HS PRN (Reason: Sleep) Discontinued lisinopril 5 mg Tablet 5 mg PO QAM Discharge Orders: Discharge Order (Routine); Ordered 09/29/23 Ordered By: Giancarlo Foster Admission Data Admit Date/Time: 09/26/23 13:20 Attending Provider: Giancarlo Foster Admit Provider: Anamika Brooks Primary Care Provider: Charly Lemus Other Providers: Anamika Brooks Coding Level of Care Code 33517 INP/OBS DISCH >30 MIN Diagnoses Fall W19.XXXA Elevated creatine kinase R74.8 Elevated troponin R79.89 Pancreatic mass K86.89 Cachexia R64 Dementia F03.90 Hypokalemia E87.6
[2023-09-29] MEDS: PSYLLIUM or GUAR GUM FIBER 4GM PACKET PO SCH (11:01)
== END 2023-09-29 15:47 | DRG 92 ==
LOC: EDINP 00:55 → ED 00:55 → SUATTDRO 03:59 → 2N 21:37